=== PATIENT | female | born 1965 | race Caucasian/White ===

== ENCOUNTER 2016-09-21 11:20 | Day surgery (SDC) | payer OTHER ==
[2016-09-21] MEDS ORDERED: NS 1,000 ML ONE (11:35)
[2016-09-21] MEDS ORDERED: AMPICILLIN 2 GM/NS 100 ML IV ONE (12:00)
[2016-09-21] MEDS ORDERED: MYLICON DROPS (DOSE) MISC ONE (13:29)
[2016-09-21] MEDS ORDERED: XYLOCAINE-MPF 2% ONE (14:01)
[2016-09-21 14:40] VITALS: BP 106/49
[2016-09-21] MEDS ORDERED: DIPRIVAN 1% ONE (15:41)
--- NOTE | 2016-09-22 03:44 | OPERATIVE NOTE ---
PROCEDURE DATE: 09/21/2016 REFERRING PHYSICIAN: Dionisio Burroughs MD. INDICATION FOR PROCEDURE: 1. Known portal hypertension with esophageal varices. 2. 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 3. Planned esophageal banding. PROCEDURE PERFORMED: Esophagogastroduodenoscopy. CONSENT: Informed consent was obtained from the patient prior to the procedure. The risks, benefits, and alternatives were discussed. MEDICATION: The patient received: 1. Monitored anesthesia care. 2. Ampicillin 2 g IV prior to the procedure. PERFORMING PHYSICIAN: Dianna Rodriguez MD. ASSISTANTS: 1. [facility] 2. Gladys Bray RN. 3. Kendal Garcia RN. 4. Clari Vargas CRNA. 5. Pawel Wise MD (anesthesia). 6. Frantz Russo MD. COMPLICATIONS: There were no complications. ESTIMATED BLOOD LOSS: None. SPECIMENS REMOVED: None. FINDINGS: After sedation was achieved, the upper endoscope was inserted to the 2nd portion of the duodenum. The hypopharynx appeared endoscopically normal. In the tubular esophagus, there were small esophageal varices. This represents an interval improvement from her initial endoscopy where she had large esophageal varices. Given the reduction in size of the esophageal varices, no banding was performed. The GE junction appeared endoscopically normal at 40 cm. In the gastric lumen, there were scattered erosions consistent with erosive gastritis. It was mild in severity. The pylorus appeared endoscopically normal. The duodenum appeared endoscopically normal. On retroflexed view, the gastritis was visualized but there were no other findings. Notably, there were no gastric varices present. After the exam was complete, the lumen was decompressed and the scope was removed without incident. IMPRESSION: 1. Small esophageal varices. 2. Erosive gastritis. 3. Otherwise normal endoscopy. RECOMMENDATION: 1. Continue nadolol. 2. Continue Xifaxan. 3. Continue Prilosec. 4. Continue Reglan. We will need to reassess Reglan every 12 weeks to minimize the risk of an adverse event. The patient is aware of the risk of extrapyramidal signs as a potential complication. 5. We will have the patient return to clinic in 4 weeks to assess interval progress.
== END 2016-09-21 14:25 | disposition home or self-care (01) ==
LOC: OPS 11:20
PROVIDERS: ATTEND Internal Medicine Gastroenterology
DX: I85.00 Esophageal varices without bleeding (principal); K29.00 Acute gastritis without bleeding; K76.6 Portal hypertension; K74.60 Unspecified cirrhosis of liver; K76.0 Fatty (change of) liver, not elsewhere classified; E11.9 Type 2 diabetes mellitus without complications; M79.7 Fibromyalgia; Z86.73 Personal history of transient ischemic attack (TIA), and cerebral infarction without residual deficits; Z79.4 Long term (current) use of insulin; Z87.891 Personal history of nicotine dependence
CPT/HCPCS: 82948; J0290; J7030

== ENCOUNTER 2016-11-25 15:12 | Emergency (ER) | payer OTHER ==
--- NOTE | 2016-11-25 15:40 | PROVIDER DOCUMENTATION ---
HPI-Abdominal Pain/GI Problem - General Chief Complaint: Abdominal Pain Stated Complaint: ADB/KNEE PAIN Time Seen by Provider: 11/25/16 15:21 Allergies/Adverse Reactions: Patient Allergies Allergy/AdvReac Type Severity Reaction Status Date / Time adhesive tape Allergy Intermediate RASH Verified 11/25/16 16:11 loperamide HCl * Allergy Intermediate ITCHING Verified 11/25/16 16:11 [From Imodium A-D] morphine Allergy Intermediate ITCHING Verified 11/25/16 16:11 acetaminophen AdvReac Unknown Verified 11/25/16 16:11 Home Medications: Home Medication List Medication Instructions Recorded Confirmed Last Taken Type Citalopram [Celexa] 20 mg PO DAILY 04/09/16 11/25/16 11/25/16 History Cyclobenzaprine [Flexeril] 40 mg PO QHS 04/09/16 11/25/16 11/25/16 History Docusate Sodium [Colace] 300 mg PO DAILY 04/09/16 11/25/16 11/25/16 History Insulin Glargine [Lantus] 100 unit SUBQ QPM 04/09/16 11/25/16 11/25/16 History Insulin Lispro [Humalog] 16 unit SQ DIRECTED 04/09/16 11/25/16 11/25/16 History Levothyroxine [Synthroid] 100 microgm PO DAILY 04/09/16 11/25/16 11/25/16 History Lubiprostone [Amitiza] 24 mcg PO DAILY 04/09/16 11/25/16 11/25/16 History Multivitamin [Multi-Vitamin Daily] 1 each PO DAILY 04/09/16 11/25/16 11/25/16 History Rifaximin [Xifaxan] 550 mg PO BID 04/09/16 11/25/16 11/25/16 History Alprazolam [Xanax] 0.5 mg PO BID PRN 08/16/16 11/25/16 11/25/16 History Nadolol 40 mg PO BID 08/16/16 11/25/16 11/25/16 History Furosemide [Lasix] 80 mg PO DAILY 08/18/16 11/25/16 11/25/16 History Hyoscyamine Sulfate 0.125 mg PO 4XDAY 08/18/16 11/25/16 11/25/16 History Metoclopramide HCl [Reglan] 5 mg PO TID 08/18/16 11/25/16 11/25/16 History Spironolactone [Aldactone] 100 mg PO BID 08/18/16 11/25/16 11/25/16 History Dicyclomine [Bentyl] 10 mg PO AC + HS #20 capsule 11/25/16 Unknown Rx Ondansetron Odt [Zofran 4 mg Odt] 4 mg PO Q6H PRN PRN #15 tablet 11/25/16 Unknown Rx - History of Present Illness-ABD Nature of Presenting Problems: Pt presents with one month h/o abdominal pain and one year h/o right knee pain. Had cholecystectomy 4 months ago that cured chronic abdominal pain from fatty liver disease for about 3 months. Currently pain is generalized with increased pain in RUQ and epigastric region that does not cause n/v/d nor fever. Had one episode of loose stool today but this did not decrease her pain. Right knee pain for about one year since fall resulting in patellar fx that did not require surgical fixation. Has had chronically swollen right knee and lower leg since that fall/fracture. Abdominal Pain Onset Location: reports: RUQ, epigastric, generalized abdomen Quality of Pain: reports: aching Severity in ED: reports: mild Onset/Duration: reports: gradual Timing: reports: constant Activities at Onset: reports: none Exposure to sick contacts?: No Modifying Factors: improves with: nothing Associated Symptoms: denies: back/neck pain, chest pain, constipation, diarrhea , fever/chills, heartburn, loss of appetite, muscle aches, nausea, pain with inspiration, vomiting, weakness Last BM: this morning Dark Stools Present?: reports: none noticed Rectal Bleeding: reports: none # of Diarrhea Episodes: 0 # of Vomiting Episodes: 0 Emesis Description: reports: none Bruising or Bleeding Gums?: No Similar Symptoms Previously?: Yes Recently seen or treated by another doctor?: Yes (frequently seen in ER for same complaints) Review of Systems - Adult - REVIEW OF SYSTEMS - ADULT Constitutional: denies: chills, fever Eyes: denies: blurred vision, double vision Ears, Nose, Mouth & Throat: reports: no symptoms reported Cardiovascular: denies: chest pain Respiratory: denies: cough, shortness of breath Gastrointestinal: reports: abdominal pain, nausea Genitourinary: reports: no symptoms reported Musculoskeletal: reports: muscle aches Integumentary: denies: rash Neurological: denies: numbness, paresthesia All Other Systems: Reviewed and Negative Past History - Adult - PAST MEDICAL HISTORY-ADULT Review of Records: reports: Old Records Reviewed, Nursing Assessment Review, Medications Reviewed Major Childhood Illnesses: reports: denies history Cardiovascular: reports: hyperlipidemia Respiratory: reports: denies history Gastrointestinal: reports: hepatitis (cirrhosis, esophageal varices), liver disease Obstetrical/Gynecological: reports: denies history Genitourinary: reports: denies history Musculoskeletal: reports: denies history Neurological: reports: denies history Endocrine/Immune: reports: Diabetes Other Conditions: reports: denies history - PRIOR SURGERIES/PROCEDURES Surgical/Procedure History: reports: recent surgery, cholecystectomy - IMMUNIZATION STATUS Childhood Immunizations: See Nurse Assessment Flu Vaccine: See Nurse Assessment - FAMILY HISTORY Family History: reviewed, not pertinent - SOCIAL HISTORY Smoking: quit greater than 1 year Living Situation: family Physical Exam-General - PHYSICAL EXAM-ADULT Initial Vital Signs Reviewed: Yes - CONSTITUTIONAL General Appearance: appears well, alert, no apparent distress (pt observed walking, sitting, performing bed mobility with no pain or compensation) - EYES Eyes: PERRL/EOMI, pink conjunctivae. negative: scleral icterus - HEAD, EARS, NOSE, MOUTH & THROAT HENMT: normocephalic/atraumatic, moist mucous membranes, normal ENT inspection - NECK Neck: non-tender, full range of motion, supple - RESPIRATORY Respiratory: chest non-tender, lungs clear, normal breath sounds - CARDIOVASCULAR Cardiovascular: regular rate, rhythm. negative: no edema (bilateral 2+ pedal edema) - GASTROINTESTINAL (ABDOMEN) Abdominal Exam: normal bowel sounds, soft, tenderness (RUQ, epigastric, LUQ) - MUSCULOSKELETAL Back Exam: normal inspection, no CVA tenderness, no vertebral tenderness Extremity: pedal edema (2+), swelling (RLE with increased girth than left) - SKIN Integumentary: normal color, normal turgor, warm/dry - NEUROLOGIC Neurologic: grossly normal, no motor/sensory deficits - PSYCHIATRIC Psych/Mental Status: normal thought content, normal thought process Progress - PLAN OF CARE/RESULTS Progress/Plan/Lab Results: Vital Signs Temp Pulse Resp BP Pulse Ox 11/25/16 15:15 98.0 F 82 18 114/33 100 adhesive tape Allergy (Intermediate, Verified 11/25/16 16:11) RASH bandaids loperamide HCl * [From Imodium A-D] Allergy (Intermediate, Verified 11/25/16 16: 11) ITCHING morphine Allergy (Intermediate, Verified 11/25/16 16:11) ITCHING acetaminophen Adverse Reaction (Verified 11/25/16 16:11) Unknown CONTRAINDICATED WITH CIRRHOSIS Citalopram [Celexa] 20 mg PO DAILY 04/09/16 Cyclobenzaprine [Flexeril] 40 mg PO QHS 04/09/16 Docusate Sodium [Colace] 300 mg PO DAILY 04/09/16 Insulin Glargine [Lantus] 100 unit SUBQ QPM 04/09/16 Insulin Lispro [Humalog] 16 unit SQ DIRECTED 04/09/16 Levothyroxine [Synthroid] 100 microgm PO DAILY 04/09/16 Lubiprostone [Amitiza] 24 mcg PO DAILY 04/09/16 Multivitamin [Multi-Vitamin Daily] 1 each PO DAILY 04/09/16 Rifaximin [Xifaxan] 550 mg PO BID 04/09/16 Alprazolam [Xanax] 0.5 mg PO BID PRN 08/16/16 Nadolol 40 mg PO BID 08/16/16 Furosemide [Lasix] 80 mg PO DAILY 08/18/16 Hyoscyamine Sulfate 0.125 mg PO 4XDAY 08/18/16 Metoclopramide HCl [Reglan] 5 mg PO TID 08/18/16 Spironolactone [Aldactone] 100 mg PO BID 08/18/16 I&O 11/24/16 11/25/16 11/26/16 06:59 06:59 06:59 Output Total 60 Balance -60 Laboratory 11/25/16 11/25/16 11/25/16 16:38 15:36 15:36 WBC RBC Hgb Hct MCV MCH MCHC RDW Std Deviation Plt Count MPV Immature Gran % (Auto) Neut % (Auto) Lymph % (Auto) [place] % (Auto) Eos % (Auto) Baso % (Auto) Immature Gran # (Auto) Neut # (Auto) Lymph # (Auto) [place] # (Auto) Eos # (Auto) Baso # (Auto) D-Dimer 1.59 H Sodium 133 L Potassium 3.9 Chloride 95 L Carbon Dioxide 25 Anion Gap 13 BUN 7 L Creatinine 0.5 Estimated GFR/1.73 m2 > 60 BUN/Creatinine Ratio 14 Glucose 222 H Calculated Osmolality 271 Calcium 9.0 Total Bilirubin 2.21 H AST 41 H ALT 26 Alkaline Phosphatase 368 H Total Protein 6.0 L Albumin 2.9 L Globulin 3.1 Albumin/Globulin Ratio 0.9 Lipase 81 H Urine Source CLEAN CATCH Urine Color YELLOW Urine Turbidity CLEAR Urine pH 7.5 Ur Specific [place] 1.010 Urine Protein NEGATIVE Ur Glucose (Stick) NEGATIVE Ur Ketones (Stick) NEGATIVE Urine Blood NEGATIVE Urine Nitrite NEGATIVE Urine Bilirubin NEGATIVE Urobilinogen Dipstick 6 A Urine Leukocytes NEGATIVE Urine WBC (Auto) <10 Urine RBC (Auto) <10 U Epithel Cells (Auto) <10 Urine Bacteria (Auto) 1+ 11/25/16 15:36 WBC 5.98 RBC 4.56 Hgb 13.3 Hct 38.1 MCV 83.6 MCH 29.2 MCHC 34.9 RDW Std Deviation 14.4 Plt Count 189 MPV 10.7 H Immature Gran % (Auto) 0.0 Neut % (Auto) 68.2 Lymph % (Auto) 19.6 L [place] % (Auto) 8.2 Eos % (Auto) 3.7 Baso % (Auto) 0.3 Immature Gran # (Auto) 0.00 Neut # (Auto) 4.08 Lymph # (Auto) 1.17 L [place] # (Auto) 0.49 Eos # (Auto) 0.22 Baso # (Auto) 0.02 D-Dimer Sodium Potassium Chloride Carbon Dioxide Anion Gap BUN Creatinine Estimated GFR/1.73 m2 BUN/Creatinine Ratio Glucose Calculated Osmolality Calcium Total Bilirubin AST ALT Alkaline Phosphatase Total Protein Albumin Globulin Albumin/Globulin Ratio Lipase Urine Source Urine Color Urine Turbidity Urine pH Ur Specific [place] Urine Protein Ur Glucose (Stick) Ur Ketones (Stick) Urine Blood Urine Nitrite Urine Bilirubin Urobilinogen Dipstick Urine Leukocytes Urine WBC (Auto) Urine RBC (Auto) U Epithel Cells (Auto) Urine Bacteria (Auto) Orders Category Date Time Status Finger Stick Blood Sugar (ED) DIRECTED Care 11/25/16 15:32 Active Saline Loc NOW Care 11/25/16 15:34 Active ABD/PELVIS/PULM ARTERIES [CT] Stat Exams 11/25/16 16:48 Draft FLAT/UPRIGHT ABD/1 VIEW CHEST [RAD] Stat Exams 11/25/16 15:34 Taken KNEE 3 VIEWS RIGHT [RAD] Stat Exams 11/25/16 15:34 Taken CBC WITH ELECTRONIC DIFF [HEME] Stat Lab 11/25/16 15:36 Completed COMPREHENSIVE METABOLIC PANEL [CHEM] Stat Lab 11/25/16 15:36 Completed D-DIMER [CHEM] Stat Lab 11/25/16 15:36 Completed LIPASE [CHEM] Stat Lab 11/25/16 15:36 Completed URINALYSIS W/POSS RFLX CULT [URINALYSIS] Stat Lab 11/25/16 16:38 Completed 0.9% Sodium Chloride Inj [Ns] 1,000 ml Med 11/25/16 16:53 Discontinued IV 999 mls/hr Hydromorphone [Dilaudid] Med 11/25/16 16:53 Discontinued 1 mg IV NOW ONE Promethazine [Phenergan] Med 11/25/16 16:53 Discontinued 25 mg IV NOW ONE Sodium Chloride 0.9% Med 11/25/16 16:53 Discontinued 10 ml INJ NOW ONE Venous U/S Right Leg [CV] Stat Ther 11/25/16 16:33 Completed Laboratory Tests 11/25/16 11/25/16 11/25/16 15:36 15:36 15:36 WBC 5.98 RBC 4.56 Hgb 13.3 Hct 38.1 MCV 83.6 MCH 29.2 MCHC 34.9 RDW Std Deviation 14.4 Plt Count 189 MPV 10.7 H Immature Gran % (Auto) 0.0 Neut % (Auto) 68.2 Lymph % (Auto) 19.6 L [place] % (Auto) 8.2 Eos % (Auto) 3.7 Baso % (Auto) 0.3 Immature Gran # (Auto) 0.00 Neut # (Auto) 4.08 Lymph # (Auto) 1.17 L [place] # (Auto) 0.49 Eos # (Auto) 0.22 Baso # (Auto) 0.02 D-Dimer 1.59 H Sodium 133 L Potassium 3.9 Chloride 95 L Carbon Dioxide 25 Anion Gap 13 BUN 7 L Creatinine 0.5 Estimated GFR/1.73 m2 > 60 BUN/Creatinine Ratio 14 Glucose 222 H Calculated Osmolality 271 Calcium 9.0 Total Bilirubin 2.21 H AST 41 H ALT 26 Alkaline Phosphatase 368 H Total Protein 6.0 L Albumin 2.9 L Globulin 3.1 Albumin/Globulin Ratio 0.9 Lipase 81 H Urine Source Urine Color Urine Turbidity Urine pH Ur Specific [place] Urine Protein Ur Glucose (Stick) Ur Ketones (Stick) Urine Blood Urine Nitrite Urine Bilirubin Urobilinogen Dipstick Urine Leukocytes Urine WBC (Auto) Urine RBC (Auto) U Epithel Cells (Auto) Urine Bacteria (Auto) 11/25/16 16:38 WBC RBC Hgb Hct MCV MCH MCHC RDW Std Deviation Plt Count MPV Immature Gran % (Auto) Neut % (Auto) Lymph % (Auto) [place] % (Auto) Eos % (Auto) Baso % (Auto) Immature Gran # (Auto) Neut # (Auto) Lymph # (Auto) [place] # (Auto) Eos # (Auto) Baso # (Auto) D-Dimer Sodium Potassium Chloride Carbon Dioxide Anion Gap BUN Creatinine Estimated GFR/1.73 m2 BUN/Creatinine Ratio Glucose Calculated Osmolality Calcium Total Bilirubin AST ALT Alkaline Phosphatase Total Protein Albumin Globulin Albumin/Globulin Ratio Lipase Urine Source CLEAN CATCH Urine Color YELLOW Urine Turbidity CLEAR Urine pH 7.5 Ur Specific [place] 1.010 Urine Protein NEGATIVE Ur Glucose (Stick) NEGATIVE Ur Ketones (Stick) NEGATIVE Urine Blood NEGATIVE Urine Nitrite NEGATIVE Urine Bilirubin NEGATIVE Urobilinogen Dipstick 6 A Urine Leukocytes NEGATIVE Urine WBC (Auto) <10 Urine RBC (Auto) <10 U Epithel Cells (Auto) <10 Urine Bacteria (Auto) 1+ Discussed need to follow up with PCP and ortho. Pt voiced understanding and willingness for compliance. Reviewed prior labs and noted trend of elevated bilirubin, liver enzymes, lipase , and alk phos. - REASSESSMENT Reassessment #1 Time Reassessed: 16:40 (request pain medications. Discussed elevated d-dimer and swollen RLE and need for US of RLE and CT of abd and pulmonary arteries. Pt voiced understanding) Status: unchanged - XRAY 1 XRAY: Right XRAY Study: Knee Impression: Normal XRAY Interpretation: arthritis, no acute injury 2 XRAY Study: Chest, Abdomen Impression: Abnormal XRAY Interpretation: constipation - CT/MRI 1 CT Study: Abdomen, Angiogram, Pelvis Impression: Abnormal (constipation) CT Results: improved ascites, constipation, s/p portosystemic shunt - ULTRASOUND (By Radiology) 1 US Study: Lower Ext (RLE) Impression: Normal US Results: (-) DVT Departure - Departure Time of Disposition Order: 18:03 DIAGNOSIS: Fatty (change of) liver, not elsewhere classified Abdominal pain Qualifiers: Abdominal location: right upper quadrant Qualified Code(s): R10.11 - Right upper quadrant pain Knee pain, chronic Qualifiers: Laterality: right Qualified Code(s): M25.561 - Pain in right knee; G89.29 - Other chronic pain Disposition: HOME 01 Certified Medical Emergency: Emergent Condition: Good Additional Instructions: ED Follow Up Instructions: You have been treated by a care provider in the Emergency Department. These instructions are being provided to you so you can have an understanding of how to care for yourself upon discharge. Upon discharge from the Emergency Department, you are responsible for making arrangements for follow-up care by a physician of your choice. Take all prescribed medications as directed. Return to the Emergency Department immediately for any new or worsening symptoms. You may call the Physician Referral phone number at [phone] to obtain a list of Physicians who are taking new patients. Prescriptions: Dicyclomine [Bentyl] 10 mg PO AC + HS #20 capsule Ondansetron Odt [Zofran 4 mg Odt] 4 mg PO Q6H PRN PRN #15 tablet PRN Reason: Nausea Referrals: Anca Foreman [Primary Care Provider] - Sheree Ozuna MD [STAFF PHYSICIAN] - Attestation - Physician/ JEFFREY Attestation Patient care was provided by Advanced Practice Provider:: Yes Advanced Practice Provider:: Melba Hassan Advanced Practice Provider documentation review:: The Mid-level provider documentation, treatment plan and medical decision making was reviewed by the physician who agrees with all treatment and medical decision making by the MLP.
[2016-11-25 15:48] LABS: MANUAL DIFF NEEDED? NO
[2016-11-25 15:52] LABS: BASO% 0.3 % (0.0-0.8); EOS# 0.22 X1000 (0.0-0.7); EOS% 3.7 % (0.0-10.0); HEMATOCRIT 38.1 % (37.0-47.0); HEMOGLOBIN 13.3 g/dL (12.0-16.0); LYMPH# 1.17 X1000 (1.2-3.4); LYMPH% 19.6 % (20.5-51.1); MCH 29.2 PG (27-31); MCHC 34.9 g/dL (33-37); MCV 83.6 FL (81-99); MONO# 0.49 X1000 (0.11-0.59); MONO% 8.2 % (1.7-9.3); MPV 10.7 FL (7.4-10.4); NEUT% 68.2 % (42.2-75.2); PLT 189 X1000 (130-400); RBC 4.56 XMIL (4.2-5.4)
[2016-11-25 16:10] LABS: AGAP 13; ALBUMIN 2.9 g/dL (3.5-5.0); ALKALINE PHOSPHATASE 368 U/L (32-104); BUN 7 mg/dL (8-22); CHLORIDE 95 mmol/L (98-107); COSMO 271; GOT 41 U/L (10-30); GPT 26 U/L (10-36); LIPASE 81 U/L (13-60); POTASSIUM 3.9 mmol/L (3.5-5.1); SODIUM 133 mmol/L (136-145); TCO2 25 mmol/L (25-35); TOTAL BILIRUBIN 2.21 mg/dL (0.20-1.00)
[2016-11-25] MEDS ORDERED: PHENERGAN IV ONE (16:53)
[2016-11-25] MEDS ORDERED: NS 1,000 ML IV ONE (16:53)
[2016-11-25] MEDS ORDERED: DILAUDID IV ONE (16:53)
[2016-11-25] MEDS ORDERED: SODIUM CHLORIDE 0.9% INJ ONE (16:53)
[2016-11-25 17:16] LABS: URINE CULTURE NEEDED? NO; URINE MICRO REVIEW NEEDED? NO; URINE SOURCE CLEAN CATCH
[2016-11-25 17:22] LABS: BILIRUBIN URINE NEGATIVE (NEGATIVE); BLOOD URINE NEGATIVE (NEGATIVE); COLOR YELLOW; GLUCOSE URINE NEGATIVE (NEGATIVE); LEUKOCYTES URINE NEGATIVE (NEGATIVE); NITRITE URINE NEGATIVE (NEGATIVE); PH URINE 7.5; PROTEIN URINE NEGATIVE (NEGATIVE); TURBIDITY URINE CLEAR (CLEAR); UROBILINOGEN URINE 6 mg/dL (NORMAL)
[2016-11-25 17:23] LABS: UR EPITHELIAL CELLS <10 /HPF (<10); URINE BACTERIA 1+ /HPF; URINE RBC <10 /HPF (<10); URINE WBC <10 /HPF (<10)
--- NOTE | 2016-11-25 17:51 | Diag Imaging Result Document ---
PROCEDURE NAME: ABD/PELVIS/PULM ARTERIES - 11/25/2016 CT OF THE CHEST WITH INTRAVENOUS CONTRAST: FINDINGS: There are no filling defects in the pulmonary arteries. The aorta is not distended and there is no evidence of dissection. There is no evidence of significant adenopathy. There is no evidence of acute pulmonary parenchymal disease. IMPRESSION: No evidence of acute disease in the chest. CT OF THE ABDOMEN WITH INTRAVENOUS CONTRAST: FINDINGS: There is ascites. There is a stent in the liver (TIPS). This was not present on 04/14/2016. The degree of ascites has decreased slightly in volume since the previous study. The spleen exceeds 14.4 cm in AP dimension which is slightly smaller than it was at the time of the previous study. There are still extensive varices around the stomach. The portal vein appears to be patent. There is fluid in the small bowel and stool in the colon. There is no evidence of obstruction. There is no evidence of appendicitis. The kidneys are without evidence of hydronephrosis or mass. CT OF THE PELVIS WITH INTRAVENOUS CONTRAST: FINDINGS: There is solid stool in the rectosigmoid colon. The urinary bladder is not distended. The regional skeleton is intact. IMPRESSION: 1. Improved ascites. 2. Status post portosystemic shunt. 3. Constipation.
[2016-11-25 19:06] VITALS: BP 101/52
--- NOTE | 2016-11-26 07:29 | Diag Imaging Result Document ---
PROCEDURE NAME: KNEE 3 VIEWS RIGHT - 11/25/2016 RIGHT KNEE THREE VIEWS: FINDINGS: There is patella bone spurring. No fracture. No dislocation. Mild medial joint space narrowing. Erosions along the posterior patella. IMPRESSION: Mild arthritis.
--- NOTE | 2016-11-26 07:38 | Diag Imaging Result Document ---
PROCEDURE NAME: FLAT/UPRIGHT ABD/1 VIEW CHEST - 11/25/2016 FLAT AND UPRIGHT AND CHEST, FOUR VIEWS: COMPARISON: Chest compared to 11/08/2016. FINDINGS: The lungs are well expanded. No pneumonia. No cardiomegaly. No free air beneath the diaphragm. There are surgical clips and a large stent in the right upper quadrant. Stool is found throughout the colon. The bowel loops are not dilated. No organomegaly. No abnormal abdominal calcifications. IMPRESSION: Constipation.
--- NOTE | 2016-11-26 15:50 | Extremity Venous Study ---
PROCEDURE NAME: Venous U/S Right Leg - 11/25/2016 REFERRING PHYSICIAN: Dr. Jernigan. READING PHYSICIAN: Dr. David Rodríguez. DRUG INSPECTOR: Harpreet. INDICATION: Elevated D-dimer and leg pain. FINDINGS: The deep and superficial veins of the right lower extremity were imaged throughout their course. All are compressible with forward flow. No thrombus is appreciated. INTERPRETATION: No evidence of deep or superficial venous thrombosis of the right lower extremity.
== END 2016-11-25 19:21 | disposition home or self-care (01) ==
LOC: ED 15:12
DX: R10.11 Right upper quadrant pain (principal); K76.0 Fatty (change of) liver, not elsewhere classified; M25.561 Pain in right knee; G89.29 Other chronic pain; R10.13 Epigastric pain; R10.84 Generalized abdominal pain; M79.1 Myalgia; E78.5 Hyperlipidemia, unspecified; K74.60 Unspecified cirrhosis of liver; I85.10 Secondary esophageal varices without bleeding; Z87.891 Personal history of nicotine dependence; E11.9 Type 2 diabetes mellitus without complications; R60.9 Edema, unspecified; R22.41 Localized swelling, mass and lump, right lower limb; Z79.899 Other long term (current) drug therapy; Z79.4 Long term (current) use of insulin
CPT/HCPCS: 71275; 74022; 74177; 80053; 81001; 82948; 83690; 85025; 85379; 93971; 96361; 96374; J1170; J2550; J7030; Q9967

== ENCOUNTER 2018-12-15 21:05 | Inpatient (IN) ==
[2018-12-15] MEDS ORDERED: D50W SYRINGE ONE (21:15)
[2018-12-15] MEDS ORDERED: D50W SYRINGE IV ONE (21:25)
[2018-12-15] MEDS ORDERED: NS 1,000 ML IV ONE (21:25)
[2018-12-15] MEDS ORDERED: NS 0 ML ONE (21:30)
[2018-12-15 23:17] LABS: AGAP 10; ALBUMIN 2.1 g/dL (3.5-5.0); ALKALINE PHOSPHATASE 215 U/L (32-104); BUN 11 mg/dL (8-22); CALCIUM 7.1 mg/dL (8.8-10.2); CHLORIDE 107 mmol/L (98-107); CK PROFILE 99 U/L (24-173); COSMO 277; CREATININE 0.3 mg/dL (0.5-0.9); ESTIMATED GFR > 60; GLUCOSE 126 mg/dL (70-104); GOT 51 U/L (10-30); GPT 21 U/L (10-36); POTASSIUM 4.4 mmol/L (3.5-5.1); SODIUM 138 mmol/L (136-145); TCO2 21 mmol/L (25-35); TOTAL BILIRUBIN 2.86 mg/dL (0.20-1.00); TOTAL PROTEIN 4.2 g/dL (6.3-8.3)
[2018-12-15 23:22] LABS: BASO# 0.02 X1000 (0.0-0.2); BASO% 0.2 % (0.0-0.8); EOS# 0.27 X1000 (0.0-0.7); EOS% 2.8 % (0.0-10.0); HEMATOCRIT 32.9 % (37.0-47.0); HEMOGLOBIN 11.1 g/dL (12.0-16.0); LYMPH# 1.06 X1000 (1.2-3.4); LYMPH% 10.9 % (20.5-51.1); MCH 29.3 PG (27-31); MCHC 33.7 g/dL (33-37); MCV 86.8 FL (81-99); MONO# 0.38 X1000 (0.11-0.59); MONO% 3.9 % (1.7-9.3); MPV 10.4 FL (7.4-10.4); NEUT# 7.98 X1000 (1.4-6.5); NEUT% 82.2 % (42.2-75.2); PLT 137 X1000 (130-400); RBC 3.79 XMIL (4.2-5.4); RDW 17.6 % (11.5-14.5); WBC 9.71 X1000 (4.8-10.8)
[2018-12-15 23:58] LABS: URINE SOURCE CLEAN CATCH
[2018-12-16 00:02] LABS: BILIRUBIN URINE SMALL (NEGATIVE); BLOOD URINE NEGATIVE (NEGATIVE); COLOR YELLOW; GLUCOSE URINE TRACE mg/dL (NEGATIVE); KETONE URINE NEGATIVE (NEGATIVE); LEUKOCYTES URINE LARGE (NEGATIVE); NITRITE URINE NEGATIVE (NEGATIVE); PROTEIN URINE TRACE mg/dL (NEGATIVE); SP GRAVITY URINE 1.029; TURBIDITY URINE CLEAR (CLEAR); UR EPITHELIAL CELLS <10 /HPF (<10); URINE BACTERIA NEGATIVE /HPF; URINE WBC 20-40 /HPF (<10); UROBILINOGEN URINE >12 mg/dL (NORMAL)
[2018-12-16 00:18] LABS: URINE CASTS NONE SEEN; URINE CRYSTALS NONE SEEN; URINE SMALL ROUND CELLS NONE SEEN; URINE YEAST PRESENT
[2018-12-16] MEDS ORDERED: LEVAQUIN 500 MG in NS 100 ML IV SCH (01:00)
[2018-12-16] MEDS ORDERED: LEVAQUIN 500 MG/D5W 500 MG/100 ML IVPB ONE (01:01)
[2018-12-16 01:22] LABS: ALLEN TEST YES; BE -0.9 mmoll (-3.0-3.0); BLOOD TYPE ARTERIAL; HCO3-(ACT) 24.2 mmoll (20.0-26.0); METHB 1.4 % (0.0-1.5); O2(CT) 15.8 mL/dL (15.0-23.0); O2HB 94.3 % (95.0-99.0); PCO2(98.6) 37 mmHg (35-45); PO2(98.6) 101 mmHg (60-100); SAMPLE BLOOD; THB 11.8 g/dL (11.5-17.4); pH(98.6) 7.41 (7.35-7.45)
[2018-12-16 01:23] LABS: MODALITY CANNULA
[2018-12-16] MEDS ORDERED: D50W SYRINGE IV PRN (04:04)
[2018-12-16] MEDS: HUMALOG SUBQ SCH ×5 (04:15→20:09)
[2018-12-16 04:24] LABS: HEMOGLOBIN A1C 5.1 % (4.8-6.0)
[2018-12-16] MEDS: ROCEPHIN 1 GM in NS 50 ML IV SCH (04:31)
[2018-12-16] MEDS ORDERED: ZOFRAN IV PRN (04:45)
[2018-12-16] MEDS: NEO-SYNEPHRINE 50 MG in NS 250 ML IV SCH ×2 (05:50→23:02)
[2018-12-16] MEDS: SYNTHROID PO SCH (07:00)
--- NOTE | 2018-12-16 07:29 | Diag Imaging Result Doc PS360 ---
EXAM: CHEST-PORTABLE - 12/15/2018 HISTORY: altered mental status TECHNIQUE: Portable chest COMPARISON: 07/31/2018 FINDINGS: The patient is rotated towards the right, which limits detail some areas. Inspiration is mildly shallow. There is some prominence of infrahilar markings on the left but these may be exaggerated by patient rotation. The right lung appears grossly clear. There is a possible tiny left pleural effusion. There is no pneumothorax identified. IMPRESSION: Mildly shallow inspiration. Questionable infrahilar infiltrate on the left versus artifact of patient rotation. Electronically signed by Parveen Perez 12/16/2018 7:27 AM
--- NOTE | 2018-12-16 07:44 | Diag Imaging Result Doc PS360 ---
EXAM: CT HEAD W/O CONTRAST - 12/15/2018 HISTORY: lethargic TECHNIQUE: CT head without contrast COMPARISON: None. FINDINGS: There is some enlargement of the body of the left lateral ventricle relative to the right. While some of this could relate to congenital anomaly, this is somewhat suspicious for ex vacuo enlargement associated with old periventricular/caudate infarct. This also extends to the left basal ganglia region. There is no indication of recent infarct, although acute infarcts may not be immediately visible. There is no evidence of intracranial hemorrhage, mass effect, or midline shift. There is no evidence of skull fracture. 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 No visible acute intracranial abnormality. No hemorrhage or mass effect. The content publisher radiologist provided preliminary results at 11:42 PM on 12/15/2018. This exam was performed using automated exposure control, adjustment of mA or kV according to patient size, and/or use of iterative reconstruction technique. Electronically signed by Parveen Perez 12/16/2018 7:41 AM
--- NOTE | 2018-12-16 07:49 | Diag Imaging Result Doc PS360 ---
EXAM: CT ANGIOGRM PULMONARY ARTERIES - 12/15/2018 HISTORY: abnormal chest xray. recent surgery TECHNIQUE: CT angiogram pulmonary arteries with intravenous contrast. Axial, coronal, and 3-D MIP images are obtained. COMPARISON: 11/25/2016 FINDINGS: There are no filling defects identified in the pulmonary arteries. There is some limitation of detail at lower lobe pulmonary arteries due to artifacts from motion and into crowding from some atelectasis. There is no evidence of aortic dissection. There are tiny right and small left pleural effusions. There is some adjacent dependent/compressive atelectasis. There is no other consolidation identified. There is no pneumothorax seen. There is upper abdominal ascites. IMPRESSION: No evidence of pulmonary embolism. Tiny right and small left pleural effusions, with adjacent dependent/compressive atelectasis. No discrete pneumonia. Upper abdominal ascites. The front clerk radiologist provided preliminary results at 11:39 PM on 12/15/2018. Electronically signed by Parveen Perez 12/16/2018 7:47 AM
[2018-12-16] MEDS: FLEXERIL PO SCH ×4 (07:53→20:08)
[2018-12-16] MEDS: CELEXA PO SCH (08:28)
[2018-12-16] MEDS: XIFAXAN PO SCH ×2 (08:30→20:08)
[2018-12-16] MEDS: PRILOSEC PO SCH (08:30)
[2018-12-16] MEDS: NEURONTIN PO SCH ×3 (08:30→20:09)
[2018-12-16] MEDS ORDERED: CORGARD PO SCH (09:00)
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
[2018-12-16] MEDS ORDERED: DILAUDID PO PRN (10:20)
[2018-12-16] MEDS ORDERED: NS 500 ML IV ONE (14:29)
[2018-12-16] MEDS ORDERED: DILAUDID IV ONE (14:29)
--- NOTE | 2018-12-16 15:45 | PROGRESS NOTE ---
DATE: 12/16/2018 SUBJECTIVE: The patient has no major complaints. OBJECTIVE: Vital Signs: Blood pressure is 77/35, heart rate 78, respiratory rate 20, and temperature 98.5. Cardiovascular: Regular rate and rhythm. Pulmonary: Bilateral breath sounds clear to auscultation. GI: Soft, protuberant, and distended. Bowel sounds are positive. Extremities: No clubbing or cyanosis. LABORATORY DATA: White count is 9, hemoglobin and hematocrit 11 and 32, and platelets 137. Workup is negative. PROBLEM LIST: 1. Shock, persistent hypotension. Unclear etiology, possibly sepsis, possibly cirrhosis. We will continue Ricardo-Synephrine and work on weaning it off. 2. Hypoglycemia, also concerning for possible underlying sepsis but could be related to her cirrhosis. We will continue to follow. Her blood sugars have stabilized off of any treatment. We will continue to follow closely. 3. Disposition: We have got to get her off of her medications. I am trying to give her a bolus and check a cortisol level. 4. Urinary tract infection. We will continue antibiotics empirically and follow. It may also be related to dehydration. cc: Carlos Maki MD
[2018-12-16] MEDS: DILAUDID IV PRN (18:44)
[2018-12-17] MEDS: HUMALOG SUBQ SCH ×6 (00:02→20:23)
[2018-12-17] MEDS: DILAUDID IV PRN ×5 (04:38→20:22)
[2018-12-17] MEDS: ROCEPHIN 1 GM in NS 50 ML IV SCH (04:39)
[2018-12-17 06:16] LABS: BASO# 0.05 X1000 (0.0-0.2); BASO% 0.4 % (0.0-0.8); EOS# 0.93 X1000 (0.0-0.7); EOS% 8.1 % (0.0-10.0); HEMATOCRIT 29.5 % (37.0-47.0); HEMOGLOBIN 9.4 g/dL (12.0-16.0); IMM GRAN# 0.06 X1000 (0.0-0.04); IMM GRAN% 0.5 % (0.0-0.5); LYMPH# 2.03 X1000 (1.2-3.4); LYMPH% 17.6 % (20.5-51.1); MCH 28.6 PG (27-31); MCHC 31.9 g/dL (33-37); MCV 89.7 FL (81-99); MONO# 1.37 X1000 (0.11-0.59); MONO% 11.9 % (1.7-9.3); MPV 9.7 FL (7.4-10.4); NEUT# 7.11 X1000 (1.4-6.5); NEUT% 61.5 % (42.2-75.2); PLT 231 X1000 (130-400); RBC 3.29 XMIL (4.2-5.4); RDW 18.3 % (11.5-14.5); WBC 11.55 X1000 (4.8-10.8)
[2018-12-17 06:46] LABS: AGAP 8; BUN 14 mg/dL (8-22); CALCIUM 7.2 mg/dL (8.8-10.2); CHLORIDE 107 mmol/L (98-107); COSMO 277; CREATININE 0.5 mg/dL (0.5-0.9); ESTIMATED GFR > 60; GLUCOSE 116 mg/dL (70-104); MAGNESIUM 1.8 mg/dL (1.5-2.7); POTASSIUM 4.4 mmol/L (3.5-5.1); SODIUM 138 mmol/L (136-145); TCO2 23 mmol/L (25-35)
[2018-12-17] MEDS: SYNTHROID PO SCH (06:53)
[2018-12-17] MEDS: NEURONTIN PO SCH ×3 (08:07→21:52)
[2018-12-17] MEDS: XIFAXAN PO SCH ×2 (08:07→21:52)
[2018-12-17] MEDS: PRILOSEC PO SCH (08:07)
[2018-12-17] MEDS: CELEXA PO SCH (08:07)
[2018-12-17] MEDS: FLEXERIL PO SCH ×3 (08:07→21:53)
[2018-12-17] MEDS ORDERED: LASIX PO SCH (12:45)
[2018-12-17] MEDS ORDERED: ROCEPHIN 1 GM in NS 50 ML IV ONE (13:00)
[2018-12-17 13:20] LABS: AGAP 8; ALB/GLOB RATIO 0.8; ALKALINE PHOSPHATASE 193 U/L (32-104); BUN 12 mg/dL (8-22); CALCIUM 7.3 mg/dL (8.8-10.2); CHLORIDE 104 mmol/L (98-107); COSMO 272; CREATININE 0.5 mg/dL (0.5-0.9); ESTIMATED GFR > 60; GLUCOSE 141 mg/dL (70-104); GOT 42 U/L (10-30); GPT 19 U/L (10-36); POTASSIUM 4.4 mmol/L (3.5-5.1); SODIUM 135 mmol/L (136-145); TCO2 23 mmol/L (25-35); TOTAL BILIRUBIN 1.86 mg/dL (0.20-1.00); TOTAL PROTEIN 4.4 g/dL (6.3-8.3)
--- NOTE | 2018-12-17 13:31 | PROGRESS NOTE ---
DATE: 12/17/2018 SUBJECTIVE: Patient has no major complaints. Blood pressure is better. OBJECTIVE: Blood pressure 108/42, heart rate of 84, temperature was 98.4 degrees. Cardiovascular: Regular rate and rhythm. Extremities: No clubbing or cyanosis. Lymphatic Examination: No peripheral edema. Neurological: Examination was nonfocal. GI: Protuberant belly. Soft, nontender, nondistended. Bowel sounds were positive. I would say she has a positive fluid wave. Pulmonary: Bilateral breath sounds clear to auscultation. Extremity Examination: No clubbing or cyanosis. Laboratory Data: White count is 11, hemoglobin and hematocrit 9 and 29, platelets of 231,000. Basic was normal. ASSESSMENT AND PLAN: 1. Shock related to possible dehydration, cirrhosis, could be sepsis. No clear source, although ascites and peritonitis are a possibility. We are evaluating for spontaneous bacterial peritonitis currently. 2. Hypoglycemia. That is also resolved. Blood sugars are stable. 3. Anemia which has progressed after hydration. We will check her labs and follow. 4. Putative urinary tract infection. Urine culture is negative. Her urine is possible urinary tract infection but unclear at this point. I am more concerned about peritonitis. 5. Disposition. She is off pressors and stable so I think we will transition her to stepdown now. 6. Cirrhosis. It is unclear if this is related to primary cirrhosis. I think she does have now nonalcoholic steatohepatitis. She has had varices noted on esophagogastroduodenoscopy before. Dr. Rodriguez is her regular provider but she is unavailable at the moment so we will consult Dr. Rob and see how she does. cc: Carlos Maki MD
--- NOTE | 2018-12-17 16:16 | Diag Imaging Result Doc PS360 ---
EXAM: US ABDOMEN-COMPLETE HISTORY: cirrhosis/sepsis TECHNIQUE: Abdominal ultrasound COMPARISON: 07/31/2018 FINDINGS: Suboptimal exam due to the patient's condition. The pancreas is obscured. The gallbladder has been removed. There is a small amount of free fluid in the upper abdomen. The spleen measures 15.7 cm in length. There is fatty infiltration of the liver. It is very difficult to penetrate the liver. No left-sided hydronephrosis or focal abnormality to the left kidney. The right kidney, aorta, and inferior vena cava are all obscured. IMPRESSION: 1.Fatty infiltration of the liver 2.Splenomegaly 3.Small amount of ascites 4.Cholecystectomy Electronically signed by Calixto Solorio 12/17/2018 4:14 PM
--- NOTE | 2018-12-17 18:52 | GASTROENTEROLOGY CONSULTATION ---
DATE: 12/17/2018 Reason for consultation: cirrhosis HPI: Ms. Elen White is a 53 year old morbidly obese woman with IDDM2, hypothyroidism, decompensated PINEDA cirrhosis c/b ascites and nonbleeding esophageal varices who was admitted yesterday after being found in bed at home unresponsive and shock in the setting of hypoglycemia with BG 30s. Prior to onset of symptoms, patient reports being in her usual state of health. That morning, she admits to taking 50 units of humolog that morning instead of her usual 30 units because she knew she was going to have a meal higher in carbs. The last thing she remembers is awaking in the ER. Currently, she says she is back to normal. She takes rifaximin, but denies history of hepatic encephalopathy and has never required lactulose in the past. Of note, she recently underwent lumbar back surgery on 12/07 and has not been taking her diuretics given her decreased mobility postoperatively. She admits to 100 pound weight gain over the last year secondary to sedentary lifestyle. She had recent EGD in 09/2018 that was negative for varices. FHx notable for PINEDA cirrhosis in mother who recently underwent liver transplant. She is followed by Dr. Rodriguez as outpatient and was supposed to be referred to [facility] for liver transplant evaluation. ROS: as per HPI, otherwise 12-point ROS negative. PMH: decompensated PINEDA cirrhosis, ascites, hypothyroidism, IDDM2, hypothyroidism, morbid obesity, prior smoker, depression, anxiety PSH: CCY, x2, back surgery x4, elbow surgery, tonsillectomy MED: spironolactone 100mg daily, lasix 40mg daily (not taking since recent surgery), synthroid, nadolol, rifaximin, celexa, xanax, flexeril, diluadid, humolog, treciba ALL: morphine, imodium, bandaid adhesive FH: PINEDA cirrhosis in mother. No GI malignancies SH: former smoker. No E/D use. PE: VS T97.3 HR 91 BP 110/49 RR 17 97%RA GEN: awake, alert, NAD, pleasant HEENT: anicteric, MMM, EOMI NECK: supple, no jvd PULM: CTAB, no wheezing CV: RRR, no mrg ABD: obese, abdominal striae, NABS, NT, difficult to appreciate ascites given habitus EXT: 1-2+ LE edema NEURO: nonfocal, no asterixis LABS: Na 135 K 4.4 Cl 104 BUN 12 Cr 0.5 CO2 23 glu 141 Albumin 2.0 Tpro 4.4 Tbili 1.86 AST 42 ALT 19 ALP 193 WBC 11.5 hgb 9.4 plts 231 ammonia 36 TSH WNL lactate 1.2 UA large WBC, RBC UC no growth troponin negative CXR w question infrahilar infiltrate vs artifact CTPE negative Abdominal US showed fatty liver, splenomegaly, small ascites, s/p CCY A/P: Ms. Elen White is a 53 year old morbidly obese woman with IDDM2, hypothyroidism, decompensated PINEDA cirrhosis c/b ascites and nonbleeding esophageal varices admitted in shock with AMS in the setting of hypoglycemia that has resolved. Negative troponins. She does not appear to have UTI or PNA by exam and UCx. She has been weaned off pressors and back to [facility]. She does have some LE edema, which is likely secondary to patient not taking home diuretics. No evidence of PSE or GI bleeding. LFTs stable. Low MELD although with available labs; no INR. Presentation likely secondary to taking excessive insulin. #Decompensated cirrhosis - continue nadolol - resume lasix and aldactone upon discharge - unclear indication of rifaximin given no prior history of PSE; consider discontinuing - US negative for hepatoma - small ascites, diuretics as above; low salt diet #LE edema: 2/2 cirrhosis #Anemia: without overt bleeding; trend daily #AMS: resolved; avoid sedating meds #IDDM2: SSI #Morbid obesity: counseled on weight loss Dr. Pizanosef will be back tomorrow to take over patient GI care. [facility]
[2018-12-17] MEDS ORDERED: ALDACTONE PO SCH (21:00)
[2018-12-18] MEDS: HUMALOG SUBQ SCH ×6 (00:20→20:00)
[2018-12-18] MEDS: DILAUDID IV PRN ×6 (00:20→20:50)
[2018-12-18 05:11] LABS: BASO# 0.02 X1000 (0.0-0.2); BASO% 0.3 % (0.0-0.8); EOS# 0.52 X1000 (0.0-0.7); EOS% 8.4 % (0.0-10.0); HEMATOCRIT 30.6 % (37.0-47.0); HEMOGLOBIN 9.6 g/dL (12.0-16.0); IMM GRAN# 0.04 X1000 (0.0-0.04); IMM GRAN% 0.6 % (0.0-0.5); LYMPH# 1.08 X1000 (1.2-3.4); LYMPH% 17.4 % (20.5-51.1); MCH 28.4 PG (27-31); MCHC 31.4 g/dL (33-37); MCV 90.5 FL (81-99); MONO% 11.3 % (1.7-9.3); MPV 9.2 FL (7.4-10.4); NEUT# 3.83 X1000 (1.4-6.5); PLT 168 X1000 (130-400); RBC 3.38 XMIL (4.2-5.4); RDW 17.8 % (11.5-14.5); WBC 6.19 X1000 (4.8-10.8)
[2018-12-18 05:32] LABS: MAGNESIUM 1.8 mg/dL (1.5-2.7)
[2018-12-18 06:18] LABS: INR 1.23; PROTIME 16.5 Seconds (11.0-16.0)
[2018-12-18] MEDS: SYNTHROID PO SCH (06:23)
--- NOTE | 2018-12-18 08:32 | EKG Report ---
Test Performed on : 12/15/2018 9:24:06 PM Test Reason : lethargic Blood Pressure : / mmHG Vent. Rate : 064 BPM Atrial Rate : 064 BPM P-R Int : 134 ms QRS Dur : 084 ms QT Int : 460 ms P-R-T Axes : 008 001 000 degrees QTc Int : 474 ms Normal sinus rhythm. Low voltage QRS Nonspecific T wave abnormality Prolonged QT Abnormal ECG When compared with ECG of 04-MAY-2017 00:00, QRS voltage has decreased Unconfirmed Result
[2018-12-18] MEDS: CELEXA PO SCH (08:34)
[2018-12-18] MEDS: XIFAXAN PO SCH ×2 (08:34→20:01)
[2018-12-18] MEDS: PRILOSEC PO SCH (08:34)
[2018-12-18] MEDS: FLEXERIL PO SCH ×3 (08:34→20:00)
[2018-12-18] MEDS: NEURONTIN PO SCH ×3 (08:34→20:01)
--- NOTE | 2018-12-18 08:55 | PROGRESS NOTE ---
DATE: 12/18/2018 SUBJECTIVE: Patient resting comfortably in bed. As per the patient, she has not been complaining of dysuria or any kind of discomfort. No fever and no chills at home. She came in due to low blood pressure and apparently also hypoglycemia. She has been on insulin NovoLog at home and insulin Degludec as well. Her hemoglobin A1c is 5.1. So far she has a negative balance of 1.2 L. Urine culture so far has been negative. I will ask for a blood culture, PT and OT. Gastroenterology department following this patient. I will wait for today's recommendations. Since this patient had an episode of low blood pressure yesterday of 86/54, I will continue holding the NovoLog for now. OBJECTIVE: Temperature 97.4 degrees, pulse 85, respiratory rate 17, blood pressure 112/57, and oxygen saturation of 98 percent on 2 L of nasal cannula.HEENT: Head normocephalic. No trauma. PERRLA. Neck: Supple. No JVD. Central trachea. Chest: Decreased breath sounds globally. No wheezing. No rales. Abdomen: Soft. Protuberant. Somehow distended. Positive bowel sounds. She has a positive wave. Extremities: 3+ lower extremity edema. No clubbing. No cyanosis. Neurological: The patient is alert and oriented x3. No focal deficits. LABORATORY: WBC 6.1, hemoglobin 9.6, hematocrit 30.6, and platelets 168,000. Glucose 138, phosphorus 3, and magnesium 1.8. ASSESSMENT AND PLAN: 1. Patient admitted with shock, possibly related to dehydration and cirrhosis. I am not sure if this is related to sepsis. I do not have a source of infection or symptoms. Gastroenterology Department has been consulted to evaluate this patient and rule out spontaneous bacterial peritonitis. 2. Hypoglycemia resolved. 3. Anemia. Will monitor. 4. Possible urinary tract infection. Culture has been negative. She had no symptoms here or at home. 5. Liver cirrhosis secondary to PINEDA. Apparently, she has some esophageal viruses and she was placed on treatment for that including nadolol which has been stopped, I will wait for Gastroenterology Department evaluation's and recommendations today. 6. Recent back surgery, I will consult Wound Care. I do not see any redness, is covered with a clean dressing. The patient is able to move her lower extremities, but she is weak. 7. Physical deconditioning and generalized weakness. I have requested an evaluation by physical therapy and occupational therapy. cc: Nahid Fuchs MD MTDD
[2018-12-18] MEDS: ROCEPHIN 2 GM in NS 50 ML IV SCH (10:03)
--- NOTE | 2018-12-18 17:32 | GASTROENTEROLOGY PROGRESS NOTE ---
DATE: 12/18/2018 SUBJECTIVE: The patient is awake and alert. She denies any significant complaints. She had been seen over the weekend by Dr. Rob. The patient had been seen by Dr. Rodriguez in the past with diagnosis of cirrhosis of the liver. She had a colonoscopy and EGD in September 2018. Colonoscopy had shown nonbleeding AVMs along with diverticulosis and hemorrhoids. EGD had shown small varices with no banding needed, esophagitis, gastritis, gastropathy, and nonbleeding AVMs. At that time, she was recommended to have a follow up EGD in 2 to 3 years and a follow up colonoscopy in 5 years. The patient reports not remembering what happened Tuesday evening when she was found unresponsive. The first thing she remembered, she was in the emergency room. Prior to that, she had denied any previous episodes of confusion. She had been taking Xifaxan. OBJECTIVE: Vital Signs: Temperature 98.3 degrees, pulse 92, blood pressure 107/54. General: The patient was awake, alert, no acute distress. Respiratory: Lung sounds essentially clear. Abdomen: Obese. Otherwise no significant ascites noted. LABORATORY DATA: Hematology: WBC 6.19, hemoglobin 9.6, hematocrit 30.6, MCV 90.5, platelet 160,000. Chemistry: Sodium 135, potassium 4.4, chloride 104, CO2 of 23, BUN 12, creatinine 0.5, glucose 144, magnesium 1.8, total bilirubin 1.86, AST 42, ALT 19, alkaline phosphatase 193, total protein 4.4, albumin 2.00. Coagulation: Pro-time 16.5, INR 1.23. Abdominal ultrasound showed fatty liver, splenomegaly, small amount of ascites, and history of cholecystectomy. ASSESSMENT AND PLAN: 1. Recent unresponsiveness most likely related to hypoglycemia and hypotension. 2. History of cirrhosis of the liver secondary to PINEDA. Continue current medications. The patient has had recent esophagogastroduodenoscopy and colonoscopy in September. Only small varices noted that did not require banding. Will continue to follow. Further plans will be made according to her progress. I have recommended she follow up with us as an outpatient once discharged. I have discussed this case with Dr. Russo. Dictated by BATOOL Bee for Frantz Russo MD cc: BATOOL Meneses MD
[2018-12-19] MEDS: HUMALOG SUBQ SCH ×6 (00:49→20:47)
[2018-12-19] MEDS: DILAUDID IV PRN ×5 (01:25→19:09)
[2018-12-19] MEDS: SYNTHROID PO SCH (06:47)
[2018-12-19 07:09] LABS: BASO# 0.04 X1000 (0.0-0.2); BASO% 0.7 % (0.0-0.8); EOS# 0.43 X1000 (0.0-0.7); EOS% 7.7 % (0.0-10.0); HEMATOCRIT 29.8 % (37.0-47.0); HEMOGLOBIN 9.5 g/dL (12.0-16.0); IMM GRAN# 0.03 X1000 (0.0-0.04); IMM GRAN% 0.5 % (0.0-0.5); LYMPH# 0.97 X1000 (1.2-3.4); LYMPH% 17.4 % (20.5-51.1); MCH 28.4 PG (27-31); MCHC 31.9 g/dL (33-37); MONO# 0.53 X1000 (0.11-0.59); MONO% 9.5 % (1.7-9.3); MPV 9.6 FL (7.4-10.4); NEUT# 3.58 X1000 (1.4-6.5); NEUT% 64.2 % (42.2-75.2); PLT 156 X1000 (130-400); RBC 3.35 XMIL (4.2-5.4); RDW 17.6 % (11.5-14.5); WBC 5.58 X1000 (4.8-10.8)
[2018-12-19 07:20] LABS: AGAP 7; ALB/GLOB RATIO 0.9; ALBUMIN 2.1 g/dL (3.5-5.0); ALKALINE PHOSPHATASE 213 U/L (32-104); BUN 8 mg/dL (8-22); CALCIUM 7.7 mg/dL (8.8-10.2); CHLORIDE 105 mmol/L (98-107); COSMO 277; CREATININE 0.4 mg/dL (0.5-0.9); ESTIMATED GFR > 60; GLUCOSE 112 mg/dL (70-104); GOT 41 U/L (10-30); GPT 19 U/L (10-36); POTASSIUM 4.3 mmol/L (3.5-5.1); SODIUM 139 mmol/L (136-145); TCO2 27 mmol/L (25-35); TOTAL BILIRUBIN 2.05 mg/dL (0.20-1.00); TOTAL PROTEIN 4.4 g/dL (6.3-8.3)
[2018-12-19] MEDS: PRILOSEC PO SCH (10:02)
[2018-12-19] MEDS: CELEXA PO SCH (10:02)
[2018-12-19] MEDS: FLEXERIL PO SCH ×3 (10:02→20:47)
[2018-12-19] MEDS: XIFAXAN PO SCH ×2 (10:02→20:47)
[2018-12-19] MEDS: NEURONTIN PO SCH ×3 (10:02→20:47)
[2018-12-19] MEDS: ROCEPHIN 2 GM in NS 50 ML IV SCH (10:55)
--- NOTE | 2018-12-19 14:14 | GASTROENTEROLOGY PROGRESS NOTE ---
DATE: 12/19/2018 SUBJECTIVE: Patient is awake and alert. No acute distress. She was moved from [facility] to the fourth floor. Her blood pressure has been stable. Recent glucose monitoring has been stable. The patient had an abdominal ultrasound showing a small amount of ascites. OBJECTIVE: Vital Signs: Temperature 98.6 degrees, pulse 99, respirations 18, blood pressure 118/47. General: Patient is awake and alert, in no acute distress. Abdomen: Obese. Otherwise soft, with positive bowel sounds. Laboratory: Hematology: WBC 5.58, hemoglobin 9.5, hematocrit 29.8, MCV 89.0. Chemistry: Sodium 139, potassium 4.3, chloride 105, CO2 27, BUN 8, creatinine 0.4, glucose 112. Total bilirubin 2.05, AST 41, ALT 19, alkaline phosphatase 213. ASSESSMENT AND PLAN: 1. Recent hypotensive and hypoglycemic episodes. Patient found unresponsive and brought in to the hospital by ambulance. She is awake and alert now. Her ammonia level was normal on admission. 2. History of cirrhosis of the liver secondary to nonalcoholic steatohepatitis. Continue current medications. The patient states she has not been taking her diuretics due to inability to get up and down well. She has had some problems with her back. Would recommend restarting her diuretics once her blood pressure is stable enough. Recommend she follow up with us as an outpatient. She just had an esophagogastroduodenoscopy and colonoscopy in September by Dr. Rodriguez. Only small varices were noted at that time that did not require banding. I have discussed this case with Dr. Russo and, again, we recommend patient follow up with us as an outpatient once she is discharged. Dictated by BATOOL Bee for Frantz Russo MD cc: BATOOL Meneses MD
[2018-12-19] MEDS: XANAX PO PRN (14:56)
--- NOTE | 2018-12-19 15:56 | PROGRESS NOTE ---
DATE: 12/19/2018 SUBJECTIVE: Patient is resting comfortably in bed. She is not complaining of dysuria. No fever. No chills. She came in because of low pressure and hypoglycemia. She was confused also. Hemoglobin A1c 5.1. And she has been on insulin degludec and NovoLog at home. I believe she has been having multiple episodes of hypoglycemia before. I will put her back on her home Lasix and spironolactone, I will see how she does, and then tomorrow if she is doing fine, I will start this patient again on nadolol. I will continue with physical therapy and occupational therapy, but this patient is extremely weak. I have requested an evaluation by the social service assistant to see if this patient qualifies to go to a rehabilitation center. OBJECTIVE: Vital Signs: Temperature 98.6 degrees, pulse 99, respiratory rate 18, blood pressure 118/47, oxygen saturation 96 on room air. HEENT: Head normocephalic, no trauma. PERRLA. Neck: Supple. No JVD. No masses. Central trachea. Chest: Decreased breath sounds globally. No wheezing. No rales. Abdomen: Soft, protuberant, [*] distended. Positive bowel sounds. She has a positive wave sign and abdominal wall edema. Extremities: 3+ lower extremity edema. No clubbing. No cyanosis. Neurological: This patient is alert. She is oriented x3. No focal deficits. LABORATORY: WBC 5.5, hemoglobin 9.5, hematocrit 29.8, platelets 156,000. Sodium 139, potassium 4.3, chloride 105, bicarbonate 27, BUN 8, creatinine 0.4, glucose 112, calcium 7.7, total bilirubin 2, AST 41, ALT 19, alkaline phosphatase 213, and albumin 2.1. ASSESSMENT AND PLAN: 1. Patient admitted with shock, probably related to dehydration and cirrhosis. I do not have any source of infection, and she is not complaining of dysuria. Gastroenterology department following this patient. 2. Hypoglycemia, resolved. I will continue with sliding scale insulin. She is on insulin degludec and NovoLog at home, I believe she has been having multiple episodes of hypoglycemia. Her hemoglobin A1c 5.1. 3. Anemia. We will monitor. 4. Possible urinary tract infection. Cultures so far negative. No symptoms at all, here or at home. 5. Liver cirrhosis secondary to nonalcoholic steatohepatitis (PINEDA). Apparently she has mild esophageal varices, and she was placed on treatment for that, including nadolol which I have stopped due to the hypotension. Hopefully tomorrow, depending on the blood pressure, I will put her back on that medication, but probably I will decrease the dose. 6. Recent back surgery. We will continue with wound care. I do not see any redness or signs of infection at this moment. 7. Physical deconditioning and generalized weakness. She is not able to walk and [*]it is really hard for her to go to the bedside commode. She needed 2 nurses to help her out. We will continue physical therapy and occupational therapy, and likely this patient needs to go to a rehabilitation center. cc: Nahid Fuchs MD
[2018-12-19] MEDS: LASIX PO SCH (19:12)
[2018-12-19] MEDS: ALDACTONE PO SCH (20:47)
[2018-12-20] MEDS: HUMALOG SUBQ SCH ×6 (01:28→20:05)
[2018-12-20] MEDS: DILAUDID IV PRN ×5 (03:56→22:57)
[2018-12-20] MEDS: XANAX PO PRN ×2 (04:39→15:42)
[2018-12-20] MEDS: SYNTHROID PO SCH ×2 (05:05→06:37)
[2018-12-20 07:31] LABS: AGAP 8; ALB/GLOB RATIO 0.8; ALBUMIN 2.1 g/dL (3.5-5.0); ALKALINE PHOSPHATASE 244 U/L (32-104); BUN 7 mg/dL (8-22); CALCIUM 7.9 mg/dL (8.8-10.2); CHLORIDE 105 mmol/L (98-107); COSMO 279; CREATININE 0.4 mg/dL (0.5-0.9); ESTIMATED GFR > 60; GLUCOSE 153 mg/dL (70-104); GOT 44 U/L (10-30); GPT 19 U/L (10-36); MAGNESIUM 1.6 mg/dL (1.5-2.7); POTASSIUM 4.3 mmol/L (3.5-5.1); SODIUM 139 mmol/L (136-145); TCO2 26 mmol/L (25-35); TOTAL BILIRUBIN 2.27 mg/dL (0.20-1.00); TOTAL PROTEIN 4.7 g/dL (6.3-8.3)
[2018-12-20] MEDS: ALDACTONE PO SCH ×2 (08:38→20:38)
[2018-12-20] MEDS: PRILOSEC PO SCH (08:38)
[2018-12-20] MEDS: XIFAXAN PO SCH ×2 (08:38→20:38)
[2018-12-20] MEDS: ROCEPHIN 2 GM in NS 50 ML IV SCH ×2 (08:38→11:36)
[2018-12-20] MEDS: CELEXA PO SCH (08:39)
[2018-12-20] MEDS: FLEXERIL PO SCH ×3 (08:39→20:38)
[2018-12-20] MEDS: LASIX PO SCH (08:39)
[2018-12-20] MEDS: NEURONTIN PO SCH ×3 (08:39→20:38)
--- NOTE | 2018-12-20 15:14 | GASTROENTEROLOGY PROGRESS NOTE ---
DATE: 12/20/2018 SUBJECTIVE: The patient was asleep at the time of my evaluation. She was in no acute distress. She was awake and alert, and aroused easily. She states that during the night, she tried to get up to go to the bathroom with the nurse's help and she fell. She has had problems getting up and down, and walking since her back surgery. OBJECTIVE: Vital Signs: Temperature 98.0 degrees, pulse 98, respirations 18, blood pressure 118/48. General: The patient is awake and alert, in no acute distress. Laboratory: Hematology: WBC 5.58, hemoglobin 9.5, hematocrit 29.8, MCV 89.0, platelets 156,000. Chemistry: Sodium 139, potassium 4.3, chloride 105, CO2 26, BUN 7, creatinine 0.4, glucose 153. ASSESSMENT AND PLAN: 1. Recent unresponsiveness, most likely related to hypotension and hypoglycemia. 2. 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 Patient states she had not been taking her diuretics since her back surgery because she was unable to get up and down frequently. I believe those have been restarted in the hospital. Recommend she continue on her diuretics and restart nadolol once the blood pressure is stable. I recommend she follow with us as an outpatient. I believe she will go to rehab. She can follow in our office after her rehab stay unless needed sooner. I have discussed this case with Dr. Russo. Dictated by BATOOL Bee for Frantz Russo MD cc: BATOOL Meneses MD [facility]
--- NOTE | 2018-12-20 16:40 | PROGRESS NOTE ---
DATE: 12/20/2018 SUBJECTIVE: Patient is resting comfortably in bed. She is complaining of generalized weakness. She is not complaining of dysuria. No fever. No chills. I put this patient back on furosemide and Aldactone. Today I restarted this patient on nadolol as well. She was taking 40 mg daily at home and I put her back on just 20 to start with. I will continue with physical therapy and hopefully this patient can be discharged to a rehab center soon. OBJECTIVE: Vital Signs: Temperature 98 degrees, pulse 98, respiratory rate 18, blood pressure 118/48, oxygen saturation 95% on room air. HEENT: Head normocephalic. No trauma. PERRLA. Neck: Supple. No JVD. No masses. Central trachea. Chest: Decreased breath sounds globally. No wheezing. Some crepitus at the bases. Abdomen: Soft, protuberant, moderately distended. Positive bowel sounds. She has a positive wave sign and abdominal wall edema. Extremities: There is 2+ to 3+ lower extremity edema. No clubbing. No cyanosis. Neurological: The patient is alert and oriented x3. No focal deficits. LABORATORY: Sodium 139, potassium 4.3, chloride 105, bicarbonate 26, BUN 7, creatinine 0.4, glucose 153, calcium 7.9, albumin 2.1. ASSESSMENT AND PLAN: 1. Patient admitted with shock, likely secondary to dehydration and cirrhosis. I do not have any source of infection. She is not complaining of dysuria. Gastroenterology Department following, resolved. 2. Hypoglycemia, resolved. I will continue with sliding scale insulin and pattern of blood sugar. At home she is on insulin degludec and NovoLog. I believe I will continue only with NovoLog 3 times a day and I will stop the degludec. Her hemoglobin A1c is 5.1 and probably she has been having more hypoglycemia at home. 3. Anemia. Will monitor. 4. Possible urinary tract infection. Cultures so far negative. No symptoms at all. 5. Liver cirrhosis secondary to nonalcoholic steatohepatitis. Apparently also she has mild esophageal varices and she has been placed on treatment for that including nadolol which I have continued today. Hopefully, we will continue with same management and the blood pressure will be stable. Also I put this patient back on her furosemide and Aldactone. 6. Recent back surgery. We will continue wound care. I do not see any redness or signs of infection. Pending rehab center placement. 7. Physical deconditioning and generalized weakness. At this moment, she is not able to walk and it is really hard for her to go to the bedside commode. She needs to go to a rehab center so she can get her strength back. cc: Nahid Fuchs MD
[2018-12-20] MEDS: CORGARD PO SCH (18:30)
[2018-12-21] MEDS: HUMALOG SUBQ SCH ×6 (02:28→22:28)
[2018-12-21] MEDS: DILAUDID IV PRN ×4 (03:48→21:10)
[2018-12-21] MEDS: SYNTHROID PO SCH (06:04)
[2018-12-21 07:01] LABS: AGAP 11; ALB/GLOB RATIO 0.8; ALKALINE PHOSPHATASE 231 U/L (32-104); BUN 7 mg/dL (8-22); CALCIUM 7.5 mg/dL (8.8-10.2); CHLORIDE 102 mmol/L (98-107); COSMO 276; CREATININE 0.4 mg/dL (0.5-0.9); ESTIMATED GFR > 60; GLUCOSE 144 mg/dL (70-104); GOT 45 U/L (10-30); GPT 18 U/L (10-36); POTASSIUM 3.6 mmol/L (3.5-5.1); SODIUM 138 mmol/L (136-145); TCO2 25 mmol/L (25-35); TOTAL BILIRUBIN 2.23 mg/dL (0.20-1.00); TOTAL PROTEIN 4.6 g/dL (6.3-8.3)
[2018-12-21] MEDS: ALDACTONE PO SCH ×2 (08:37→20:41)
[2018-12-21] MEDS: CELEXA PO SCH (08:37)
[2018-12-21] MEDS: FLEXERIL PO SCH ×3 (08:37→20:41)
[2018-12-21] MEDS: CORGARD PO SCH (08:37)
[2018-12-21] MEDS: LASIX PO SCH (08:38)
[2018-12-21] MEDS: PRILOSEC PO SCH (08:38)
[2018-12-21] MEDS: NEURONTIN PO SCH ×3 (08:38→20:41)
[2018-12-21] MEDS: XIFAXAN PO SCH ×2 (08:38→20:41)
[2018-12-21] MEDS: ROCEPHIN 2 GM in NS 50 ML IV SCH (10:42)
[2018-12-21] MEDS: XANAX PO PRN (12:58)
--- NOTE | 2018-12-21 14:41 | PROGRESS NOTE ---
DATE: 12/21/2018 SUBJECTIVE: No acute events overnight. This patient is feeling better. She is still complaining of generalized weakness. OBJECTIVE: Vital signs: Temperature 98.4 degrees, pulse 100, respiratory rate 20, blood pressure 101/78, oxygen saturation 98 on 2 L of nasal cannula. HEENT: Head normocephalic, no trauma. PERRLA. Neck: Supple. No JVD. No masses. Central trachea. Chest: Decreased breath sounds globally. No wheezing. Some crepitus at the bases. Abdomen: Soft, protuberant, moderately distended. Positive bowel sounds. She has a positive wave sign and abdominal wall edema, mild. Extremities: There is 2+ to 3+ lower extremity edema. No clubbing. No cyanosis. Neurological examination: The patient is alert and oriented x3. No focal deficits. LABORATORY: Sodium 136, potassium 3.6, chloride 102, bicarbonate 25. BUN 7, creatinine 0.4, glucose 144, calcium 7.5. AST 45, ALT 18, alkaline phosphatase 231, bilirubin 2.2, albumin 2. ASSESSMENT AND PLAN: 1. Patient admitted with shock, likely hypovolemic due to dehydration and cirrhosis. I do not have any source of infection. No dysuria. Gastroenterology Department following this patient. Resolved. 2. Hypoglycemia, resolved. Continue with sliding scale insulin and pattern of blood sugar at home. She is on insulin Degludec and NovoLog, I will continue only with NovoLog 3 times a day and then I will stop the Degludec since the hemoglobin A1c 5.1, and probably she has been having more hypoglycemic events at home. 3. Anemia. Will monitor. 4. Possible urinary tract infection. Cultures so far negative, and she is not having dysuria. 5. Liver cirrhosis secondary to nonalcoholic steatohepatitis. Continue with home medications. Gastroenterology Department already evaluated this patient. 6. Recent back surgery. I will continue with wound care. I do not see any redness or signs of infection. Pending rehabilitation center placement. 7. Physical deconditioning and generalized weakness. At this moment, she is not able to walk by herself or even stand up. She needs to go to a rehabilitation center so she can get her strength back. cc: Nahid Fuchs MD
[2018-12-22] MEDS: DILAUDID IV PRN ×3 (04:09→12:54)
[2018-12-22] MEDS: HUMALOG SUBQ SCH (04:49)
[2018-12-22] MEDS: SYNTHROID PO SCH (06:00)
[2018-12-22 06:35] LABS: BASO# 0.03 X1000 (0.0-0.2); BASO% 0.4 % (0.0-0.8); EOS# 0.47 X1000 (0.0-0.7); EOS% 6.7 % (0.0-10.0); HEMATOCRIT 31.2 % (37.0-47.0); HEMOGLOBIN 9.8 g/dL (12.0-16.0); IMM GRAN# 0.04 X1000 (0.0-0.04); IMM GRAN% 0.6 % (0.0-0.5); LYMPH# 1.01 X1000 (1.2-3.4); LYMPH% 14.4 % (20.5-51.1); MCH 27.7 PG (27-31); MCHC 31.4 g/dL (33-37); MCV 88.1 FL (81-99); MONO# 0.95 X1000 (0.11-0.59); MONO% 13.6 % (1.7-9.3); MPV 9.8 FL (7.4-10.4); NEUT% 64.3 % (42.2-75.2); PLT 164 X1000 (130-400); RBC 3.54 XMIL (4.2-5.4); RDW 17.5 % (11.5-14.5)
[2018-12-22 07:18] LABS: AGAP 7; ALB/GLOB RATIO 0.8; ALBUMIN 2.2 g/dL (3.5-5.0); ALKALINE PHOSPHATASE 250 U/L (32-104); BUN 8 mg/dL (8-22); CALCIUM 7.7 mg/dL (8.8-10.2); CHLORIDE 100 mmol/L (98-107); COSMO 274; CREATININE 0.4 mg/dL (0.5-0.9); ESTIMATED GFR > 60; GLUCOSE 123 mg/dL (70-104); GOT 48 U/L (10-30); GPT 18 U/L (10-36); POTASSIUM 3.5 mmol/L (3.5-5.1); SODIUM 137 mmol/L (136-145); TCO2 30 mmol/L (25-35); TOTAL BILIRUBIN 2.26 mg/dL (0.20-1.00); TOTAL PROTEIN 4.9 g/dL (6.3-8.3)
[2018-12-22] MEDS: PRILOSEC PO SCH (09:52)
[2018-12-22] MEDS: XIFAXAN PO SCH (09:52)
[2018-12-22] MEDS: LASIX PO SCH (09:52)
[2018-12-22] MEDS: ROCEPHIN 2 GM in NS 50 ML IV SCH (09:52)
[2018-12-22] MEDS: NEURONTIN PO SCH (09:52)
[2018-12-22] MEDS: FLEXERIL PO SCH (09:52)
[2018-12-22] MEDS: CORGARD PO SCH (09:52)
[2018-12-22] MEDS: CELEXA PO SCH (09:52)
[2018-12-22] MEDS: ALDACTONE PO SCH (09:52)
[2018-12-22 11:34] VITALS: BP 133/60
--- NOTE | 2018-12-22 11:48 | DISCHARGE SUMMARY ---
ADMISSION DATE: 12/15/2018 DISCHARGE DATE: 12/22/2018 DIAGNOSES: 1. Shock, likely hypovolemic, due to dehydration and cirrhosis, resolved. 2. Hypoglycemia, resolved. 3. Anemia. 4. Possible urinary tract infection with negative cultures. 5. Liver cirrhosis secondary to nonalcoholic steatohepatitis. 6. History of esophageal varices. 7. Physical conditioning and generalized weakness. 8. Recent back surgery. DIAGNOSTICS: 1. 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 No visible acute intracranial abnormality. No hemorrhage, no mass effect. 2. Chest x-ray revealed mildly shallow inspiration, questionable infiltrate versus artifact of patient rotation on the left. 3. Pulmonary arteriogram revealed no evidence of pulmonary embolism. 4. Abdominal ultrasound revealed fatty infiltration of the liver, splenomegaly, a small amount of ascites and cholecystectomy. CONSULTATION: Dr. Vick Rob in Gastroenterology. HOSPITAL COURSE: Ms. White presented to the emergency room with altered mental status. She was found have a blood sugar of 50, for which she was treated with half of an amp of D 50. Blood sugar stayed in the 90s and her mental status did return to baseline. She was hypotensive, initially receiving Ricardo-Synephrine which thankfully we were able to wean since blood pressures have stayed in the 90 to 120s over 50 to 70s range. She was evaluated by Gastroenterology for [facility]. Nadolol was continued. Medications were adjusted per their expertise. During the hospitalization, she was on routine blood sugar checks. We held her long-acting insulin covering her with sliding scale. It was discovered that the patient had stopped taking her diuretics as she had back surgery and it was painful getting up and down, going to the bathroom. After many discussions on the importance of adhering to her prescribed regimen she agreed to taking her medications as prescribed. DISCHARGE PHYSICAL EXAMINATION: Vital Signs: Blood pressure is 121/50 with a heart rate of 90, respirations are 16, temperature is 98.2 degrees with room air saturations 96 to 100 percent. Cardiovascular: Regular rate and rhythm. S1 and S2 appreciated. She has 2+ to 3+ lower extremity edema. Calves are nontender with peripheral pulses palpable x4 extremities. Pulmonary: Breath sounds are clear. Chest rises and falls symmetric with respiration. Chest wall is nontender to palpation. Gastrointestinal: She has a soft, protuberant, distended abdomen with positive wave sign. Bowel sounds are present in all 4 quadrants. Neurologic: She is alert and oriented x3. DISCHARGE MEDICATIONS: 1. Spironolactone 100 mg oral twice daily. 2. Celexa 20 mg oral daily. 3. Cyclobenzaprine 10 mg oral three times a day. 4. Gabapentin 300 mg oral three times a day. 5. Lasix 80 mg oral daily. 6. Prilosec 40 mg oral daily. 7. Levothyroxine 100 mcg oral daily. 8. Xanax 0.5 oral twice daily. 9. Xifaxan 550 mg oral twice daily. 10. Nadolol 20 mg oral daily. 11. NovoLog insulin as directed. DISPOSITION: The patient is being discharged in transfer to [facility] in stable condition with family members present. TIME SPENT: This is a greater than 30 minute discharge. Dictated by BATOOL Viera for Nahid Fuchs MD This chart was documented by, BATOOL Viera and accurately reflects the services performed, treatment plan and medical decisions as attested by the providers signature Nahid Fuchs MD. cc: BATOOL Viera MD [facility]
--- NOTE | 2018-12-22 17:10 | GASTROENTEROLOGY PROGRESS NOTE ---
DATE: 12/22/2018 SUBJECTIVE: Patient is awake, alert, no acute distress. She states she was able to walk in the halls with physical therapy. OBJECTIVE: Vital Signs: Temperature 98.3 degrees, pulse 98, respirations 20, blood pressure 133/60. General: Patient is awake, alert, no acute distress. LABORATORY: Hematology. WBC 7.0, hemoglobin 9.8, hematocrit 31.2, MCV 88.1, platelet 164,000. Chemistry. Sodium 137, potassium 3.5, chloride 100, CO2 30, BUN 8, creatinine 0.4, glucose 123, calcium 7.7, total bilirubin 2.26, AST 48, ALT 18, alkaline phosphatase 250. ASSESSMENT AND PLAN: 1. Recent unresponsiveness most likely related to hypotension and hypoglycemia which has resolved. 2. Cirrhosis of the liver. History of nonalcoholic steatohepatitis. Continue current medications. Recommend patient follow up with us as an outpatient. I believe she will go to rehab. She can follow up with us after her rehab stay. I have discussed this case with Dr. Russo. Dictated by BATOOL Bee for Frantz Russo MD cc: BATOOL Meneses MD
== END 2018-12-22 14:40 | DRG 637 ==
LOC: SUPCPDRO → ED 21:05 → SUATTDRO 12-16 04:52 → EDIPHOLD 12-16 04:52 → ICU 12-16 15:02 → 3S 12-17 17:07 → 4N 12-18 18:01
PROVIDERS: ATTEND Internal Medicine
CPT/HCPCS: 51702; 70450; 71010; 71045; 71275; 76700; 80048; 80053; 80061; 81001; 82140; 82550; 82805; 82948; 83036; 83605; 83721; 83735; 84100; 84443; 84484; 85025; 85610; 87040; 87088; 93005; 96361; 96365; 96366; 96367; 96375; 96376; 97110; 97162; 97166; 97530; 97535; 99285; 99291; A9270; J0696; J1170; J1815; J1956; J2370; J7030; J7040; J7050; Q9967; XXXXX

== ENCOUNTER 2019-01-17 09:45 | Inpatient (IN) ==
--- NOTE | 2019-01-17 10:10 | PROVIDER DOCUMENTATION ---
HPI-Musculoskeletal Pain/Inj - GENERAL Chief Complaint: Fall Stated Complaint: KEEP FALLING/RIB PAIN Time Seen by Provider: 01/17/19 10:07 - HX OF PRESENT ILLNESS-MUSKULOSKELTAL Nature of Presenting Problem: reports s/p fall 1-2 times since she was home from rehab. one episode slipped out of the wheelchair and no injury. second time this past tuesday, she stood up and ambulated got caught on her blanket around her bed, fell and injured her left rib. sob, pain on inspiration. has the incentive spirometry at home but did not used it per hsuband. history of v1 fx with hardware repaired x2. Review of Systems - Adult - REVIEW OF SYSTEMS - ADULT Constitutional: reports: no symptoms reported Eyes: reports: no symptoms reported Ears, Nose, Mouth & Throat: reports: no symptoms reported Cardiovascular: reports: no symptoms reported Respiratory: reports: no symptoms reported Gastrointestinal: reports: no symptoms reported Genitourinary: reports: no symptoms reported Musculoskeletal: reports: no symptoms reported Integumentary: reports: no symptoms reported Neurological: reports: no symptoms reported Psychiatric: reports: no symptoms reported Endocrine: reports: no symptoms reported Hematologic/Lymphatic: reports: no symptoms reported Allergic/Immunologic: reports: no symptoms reported All Other Systems: Reviewed and Negative Past History - Adult - PAST MEDICAL HISTORY-ADULT Review of Records: reports: Old Records Reviewed, Nursing Assessment Review, Medications Reviewed, Social history reviewed & non-contributory. Major Childhood Illnesses: reports: denies history Cardiovascular: reports: hyperlipidemia Respiratory: reports: denies history Gastrointestinal: reports: liver disease, other (cirrhosis) Obstetrical/Gynecological: reports: denies history Genitourinary: reports: denies history Musculoskeletal: reports: denies history Neurological: reports: CVA, TIA Psychiatric: reports: anxiety Endocrine/Immune: reports: Diabetes, thyroid disorder Other Conditions: reports: denies history - PRIOR SURGERIES/PROCEDURES Surgical/Procedure History: reports: cholecystectomy, hysterectomy, , tonsillectomy, orthopedic (extremity), back/neck - IMMUNIZATION STATUS Childhood Immunizations: See Nurse Assessment Flu Vaccine: See Nurse Assessment - FAMILY HISTORY Family History: reviewed, not pertinent - SOCIAL HISTORY Smoking: denies Substance Use: none/never Alcohol Use Frequency: never Living Situation: family Physical Exam-Injury Related - Physical Exam-Injury Related Initial Vital Signs Reviewed: Yes General Appearance: appears well, alert, moderate distress Eyes: PERRL/EOMI Head, Ears, Nose, Mouth & Throat: normocephalic/atraumatic, moist mucous membranes Neck: non-tender, full range of motion Respiratory: lungs clear, pain on inspiration, rib tenderness Cardiovascular: normal peripheral pulses, tachycardia Abdominal Exam: normal bowel sounds, non tender, soft Back Exam: normal inspection, no CVA tenderness, no vertebral tenderness Extremity: normal range of motion, non-tender, normal gait, normal inspection, pedal edema (2+) Integumentary: normal color, warm/dry Neurologic: grossly normal, no motor/sensory deficits Psych/Mental Status: normal mood/affect, normal thought content, normal thought process, oriented x 3 Progress - PLAN OF CARE/RESULTS Progress/Plan/Lab Results: Vital Signs - 8 hr 01/17/19 09:47 Temperature 97.5 F L Pulse Rate 96 H Respiratory Rate 20 Blood Pressure 137/68 O2 Sat by Pulse Oximetry 99 Laboratory Results - last 24 hr 01/17/19 01/17/19 01/17/19 10:55 10:55 10:55 WBC 4.61 L RBC 4.08 L Hgb 10.8 L Hct 33.9 L MCV 83.1 MCH 26.5 L MCHC 31.9 L RDW Std Deviation 16.3 H Plt Count 189 MPV 9.4 Immature Gran % (Auto) 0.4 Neut % (Auto) 57.5 Lymph % (Auto) 14.8 L [place] % (Auto) 14.5 H Eos % (Auto) 12.1 H Baso % (Auto) 0.7 Immature Gran # (Auto) 0.02 Neut # (Auto) 2.65 Lymph # (Auto) 0.68 L [place] # (Auto) 0.67 H Eos # (Auto) 0.56 Baso # (Auto) 0.03 Sodium 135 L Potassium 3.9 Chloride 102 Carbon Dioxide 26 Anion Gap 7 BUN 4 L Creatinine 0.5 Estimated GFR/1.73 m2 > 60 BUN/Creatinine Ratio 8 Glucose 127 H Calculated Osmolality 269 Calcium 7.7 L Total Bilirubin 1.92 H AST 40 H ALT 17 Alkaline Phosphatase 202 H Pij-M-Yfzhvtnmums Pept 87 Total Protein 5.4 L Albumin 2.5 L Globulin 2.9 Albumin/Globulin Ratio 0.9 Orders Category Date Time Status RIBS UNILAT W/PA CHEST RIGHT [RAD] Stat Exams 01/17/19 10:16 Completed US ABDOMEN-COMPLETE [US] Stat Exams 01/17/19 10:51 Completed BNP [PRO B-NATRIURETIC PEPTIDE] Stat Lab 01/17/19 10:55 Completed CBC WITH ELECTRONIC DIFF [HEME] Stat Lab 01/17/19 10:55 Completed CMP [COMPREHENSIVE METABOLIC PANEL] [CHEM] Stat Lab 01/17/19 10:55 Completed Lidocaine 5% Patch [Lidoderm] Med 01/17/19 10:41 Discontinued 1 each TOP NOW ONE Oxycodone E.r. [Oxycontin] Med 01/17/19 10:41 Discontinued 10 mg PO NOW ONE [facility] [address] , [address], [place] [address] Department of Imaging Patient: JOEY SARGENT ADM Date: 01/17/19 MR#: [id number] : 1965 ADM Status: PRE ER Age/Sex: 53/F Room/Bed: Loc: ED Ordering Physician: Kristi Pretty MD Family Physician: Dionisio Burroughs MD Reason for Procedure: left Signed RIBS UNILAT W/PA CHEST RIGHT - 01/17/2019 INDICATION: left TECHNIQUE: Five views COMPARISON: 12/15/2018 FINDINGS: There is some mild infiltrate at the left lower lobe. There is a stent in the region of the liver compatible with a TIPS. There is probably a trace left pleural effusion. The right lung is clear. There are thoracolumbar spine fusion rods bilaterally. The ribs appear in tact. IMPRESSION: Nonspecific findings. Electronically signed by Yeison Belcher 01/17/2019 10:36 AM 01/17/19 1036 Interpreting Physician: Yeison Belcher MD Dictated Date/Time: 01/17/19 1035 cc: Kristi Pretty MD; Dionisio Burroughs MD Result Diagrams: 01/17/19 10:55 01/17/19 10:55 - CONSULTS/PCP/HOSPITALIST Notification #1 *Consult/PCP/Hospitalist*: Mia RENAE Time Discussed: 13:46 (cirrhosis with ascites) Consult Disposition: Admit Departure - Departure Date of Disposition Decision: 01/17/19 Time of Disposition Decision: 13:46 DIAGNOSIS: Cirrhosis of liver with ascites Disposition: ADMITTED INPATIENT 09 Certified Medical Emergency: Emergent Condition: Stable Referrals and Follow-Ups: Dionisio Burroughs MD [Primary Care Provider] - - Critical Care Note This patient required my direct & personal management of CC.: No Attestation - Physician/ JEFFREY Attestation The physician spent face to face time with patient:: Yes Advanced Practice Provider documentation review:: Supervising physician onsite and consulted in the evaluation and care of this patient. The physician did have a face to face encounter with the patient.
--- NOTE | 2019-01-17 10:39 | Diag Imaging Result Doc PS360 ---
RIBS UNILAT W/PA CHEST RIGHT - 01/17/2019 INDICATION: left TECHNIQUE: Five views COMPARISON: 12/15/2018 FINDINGS: There is some mild infiltrate at the left lower lobe. There is a stent in the region of the liver compatible with a TIPS. There is probably a trace left pleural effusion. The right lung is clear. There are thoracolumbar spine fusion rods bilaterally. The ribs appear intact. IMPRESSION: Nonspecific findings. Electronically signed by Yeison Belcher 01/17/2019 10:36 AM
[2019-01-17] MEDS ORDERED: LIDODERM TOP ONE (10:41)
[2019-01-17] MEDS ORDERED: OXYCONTIN PO ONE (10:41)
[2019-01-17 11:07] LABS: BASO# 0.03 X1000 (0.0-0.2); BASO% 0.7 % (0.0-0.8); EOS# 0.56 X1000 (0.0-0.7); EOS% 12.1 % (0.0-10.0); HEMATOCRIT 33.9 % (37.0-47.0); HEMOGLOBIN 10.8 g/dL (12.0-16.0); IMM GRAN# 0.02 X1000 (0.0-0.04); IMM GRAN% 0.4 % (0.0-0.5); LYMPH# 0.68 X1000 (1.2-3.4); LYMPH% 14.8 % (20.5-51.1); MCH 26.5 PG (27-31); MCHC 31.9 g/dL (33-37); MCV 83.1 FL (81-99); MONO# 0.67 X1000 (0.11-0.59); MONO% 14.5 % (1.7-9.3); MPV 9.4 FL (7.4-10.4); NEUT# 2.65 X1000 (1.4-6.5); NEUT% 57.5 % (42.2-75.2); PLT 189 X1000 (130-400); RBC 4.08 XMIL (4.2-5.4); RDW 16.3 % (11.5-14.5); WBC 4.61 X1000 (4.8-10.8)
[2019-01-17 11:29] LABS: AGAP 7; ALB/GLOB RATIO 0.9; ALBUMIN 2.5 g/dL (3.5-5.0); ALKALINE PHOSPHATASE 202 U/L (32-104); BUN 4 mg/dL (8-22); CALCIUM 7.7 mg/dL (8.8-10.2); CHLORIDE 102 mmol/L (98-107); COSMO 269; CREATININE 0.5 mg/dL (0.5-0.9); ESTIMATED GFR > 60; GLUCOSE 127 mg/dL (70-104); GOT 40 U/L (10-30); GPT 17 U/L (10-36); POTASSIUM 3.9 mmol/L (3.5-5.1); SODIUM 135 mmol/L (136-145); TCO2 26 mmol/L (25-35); TOTAL BILIRUBIN 1.92 mg/dL (0.20-1.00); TOTAL PROTEIN 5.4 g/dL (6.3-8.3)
--- NOTE | 2019-01-17 11:57 | Diag Imaging Result Doc PS360 ---
EXAM: US ABDOMEN-COMPLETE INDICATION: cirrhosis ascites COMPARISON: 12/17/2018 FINDINGS: Exam is suboptimal due to the patient's condition. There has been a prior cholecystectomy. The common bile duct is normal in diameter. The contour of the liver is somewhat nodular and the liver echotexture is heterogeneous indicating cirrhosis. No well-defined hepatic mass is identified. Ascites is noted tracking around the liver. Portal venous flow is hepatopetal. The pancreas is obscured. The aorta and IVC are obscured. There is splenomegaly similar to the previous study. The kidneys are grossly unremarkable. IMPRESSION: 1.Nodular liver contour suggesting cirrhosis. 2.Ascites. 3.Essentially stable splenomegaly. Electronically signed by Grady Rodriguez 01/17/2019 11:54 AM
[2019-01-17] MEDS ORDERED: ZOFRAN IV PRN (15:10)
[2019-01-17] MEDS ORDERED: LASIX IV ONE (15:56)
[2019-01-17] MEDS ORDERED: LASIX PO ONE (15:57)
[2019-01-17] MEDS ORDERED: ALDACTONE PO SCH (16:57)
[2019-01-17] MEDS: ALDACTONE PO SCH (18:00)
--- NOTE | 2019-01-17 20:07 | HISTORY AND PHYSICAL ---
CHIEF COMPLAINT: Fall, with left rib pain. HISTORY OF PRESENT ILLNESS: Ms. White is a 53-year-old female with a history of liver cirrhosis secondary to nonalcoholic steatohepatitis, nonbleeding esophageal varices, and prior back surgeries. She presented to the emergency room with left rib pain after falling 2 days prior. She stated that she has fallen quite a few times in the last week. With this last fall, she stated that she was getting up to walk and got tangled up in a blanket, lost her footing and fell, hitting her left side. Rib and chest x-ray revealed a mild infiltrate at the lower left lobe. PAST MEDICAL HISTORY: 1. Hypothyroid. 2. Nonalcoholic steatohepatitis. 3. Cirrhosis. 4. CVA at 20 years old. 5. Diabetes mellitus. 6. Gastroesophageal reflux disease. PAST SURGICAL HISTORY: 1. Cholecystectomy. 2. . 3. Hysterectomy. 4. Tonsillectomy. SOCIAL HISTORY: She denies any alcohol, tobacco, or illicit drug use. ALLERGIES: Adhesive tape, Imodium AD, NSAIDs, morphine, and acetaminophen. HOME MEDICATIONS: A list will be obtained by the nursing staff. Once verified, will review and restart as appropriate. REVIEW OF SYSTEMS: Discussed with patient with pertinent positives stated in the HPI. She denied any syncope or dizziness, any chest pain or palpitations, a cough, fever, chills, any night sweats, any nausea, vomiting, diarrhea, constipation, black or bloody vomitus or stools, hematuria, dysuria, frequency, or urgency. PHYSICAL EXAMINATION: GENERAL: This is a 53-year-old female who is lying in the bed in no distress. VITAL SIGNS: Blood pressure is 105/70 with heart rate of 98, respirations 18, temperature is 97.7 degrees, with room air saturations 99%. EYES: Pupils are equal, round, and react to light. EOMs are intact. Sclerae are anicteric. HEENT: Head is normocephalic, atraumatic. Mucous membranes are moist. NECK: Supple, with trachea midline. CARDIOVASCULAR: Regular rate and rhythm. S1 and S2 appreciated. She does have bilateral lower extremity edema. Calves are nontender to palpation. PULMONARY: Breath sounds are clear. They are diminished in the bases. Chest rises and falls symmetric with respiration. Chest wall is tender to palpation at the left side, mid axillary area. GASTROINTESTINAL: Abdomen is soft, nontender, and nondistended with bowel sounds in all 4 quadrants. NEUROLOGIC: She is alert and oriented x3. SKIN: Warm and dry. LABS: WBC is 4.6 with hemoglobin 10.8, hematocrit 33.9, and platelets of 189,000. Sodium 135, potassium 3.9, BUN 4, creatinine 0.5, with a glucose of 127. Total bilirubin is 1.92, with AST of 40, ALT of 17, alkaline phosphatase 202. IMAGING: Rib x-ray revealed some mild infiltrate in the left lower lobe with a stent in the region of the liver, compatible with a TIPS. There is probably a trace left pleural effusion. Right lung is clear. Abdominal ultrasound reveals nodular liver contour, suggesting cirrhosis and ascites, and a stable splenomegaly. ASSESSMENT AND PLAN: 1. Frequent falls, left rib pain. 2. Left lower lobe infiltrate. 3. Liver cirrhosis, secondary to nonalcoholic steatohepatitis. 4. Ascites. 5. History of esophageal varices, nonbleeding. 6. Diabetes mellitus. 7. Hypothyroid. PLAN: 1. The patient will be admitted to the medical-surgical floor. 2. She will be placed on telemetry for close monitoring. 3. We will identify her home medications and continue these as appropriate. 4. Repeat a CBC and CMP in the morning. 5. We will have Physical Therapy evaluate the patient. 6. As she has a left-sided infiltrate, we will order blood cultures and start antibiotics. 7. For deep venous thrombosis prophylaxis, we will use sequential compression devices, holding any anticoagulation as she has had multiple falls. 8. For gastrointestinal prophylaxis, we will use Prilosec. 9. Further treatments pending hospital course. Dictated by BATOOL Viera for Marcelino Ramachandran MD cc: BATOOL Viera MD I have seen and examined Ms White who was just recently discharged from this hospital to a rehab. She was in rehab for 2 weeks and sent home. Complains of falling down multiple times at home so she came back. She looks more edematous and ascitic. I have also reviewed her labs and imagine studies. I agree with the above HPI and the plan reflects my opinion discussed with the VALVE REPAIRER. TOM
[2019-01-17] MEDS ORDERED: NEURONTIN PO SCH (21:00)
[2019-01-17] MEDS: XIFAXAN PO SCH (21:22)
[2019-01-17] MEDS: XANAX PO SCH (21:22)
[2019-01-17] MEDS: MAXIPIME 1 GM in NS 50 ML IV SCH (21:22)
[2019-01-17] MEDS: LACTULOSE PO SCH ×2 (21:23→21:25)
[2019-01-18 07:02] LABS: BASO# 0.03 X1000 (0.0-0.2); BASO% 0.6 % (0.0-0.8); EOS# 0.67 X1000 (0.0-0.7); EOS% 13.6 % (0.0-10.0); HEMATOCRIT 32.1 % (37.0-47.0); HEMOGLOBIN 10.1 g/dL (12.0-16.0); LYMPH% 16.3 % (20.5-51.1); MCH 26.4 PG (27-31); MCHC 31.5 g/dL (33-37); MCV 83.8 FL (81-99); MONO# 0.82 X1000 (0.11-0.59); MONO% 16.7 % (1.7-9.3); MPV 9.7 FL (7.4-10.4); NEUT# 2.59 X1000 (1.4-6.5); NEUT% 52.8 % (42.2-75.2); PLT 182 X1000 (130-400); RBC 3.83 XMIL (4.2-5.4); RDW 16.4 % (11.5-14.5); WBC 4.91 X1000 (4.8-10.8)
[2019-01-18 08:04] LABS: AGAP 7; ALB/GLOB RATIO 0.6; ALKALINE PHOSPHATASE 183 U/L (32-104); BUN 4 mg/dL (8-22); CALCIUM 7.7 mg/dL (8.8-10.2); CHLORIDE 105 mmol/L (98-107); COSMO 268; CREATININE 0.4 mg/dL (0.5-0.9); ESTIMATED GFR > 60; GLUCOSE 111 mg/dL (70-104); GOT 35 U/L (10-30); GPT 15 U/L (10-36); POTASSIUM 4.1 mmol/L (3.5-5.1); SODIUM 135 mmol/L (136-145); TCO2 23 mmol/L (25-35); TOTAL PROTEIN 5.1 g/dL (6.3-8.3)
[2019-01-18 08:35] LABS: MAGNESIUM 1.9 mg/dL (1.5-2.7); PHOSPHORUS 3.1 mg/dL (2.7-4.5)
[2019-01-18 08:56] LABS: INR 1.38; PROTIME 18.1 Seconds (11.0-16.0)
[2019-01-18] MEDS ORDERED: LASIX IV SCH (09:00)
[2019-01-18] MEDS: MAXIPIME 1 GM in NS 50 ML IV SCH (09:11)
[2019-01-18] MEDS: LASIX PO SCH ×3 (09:12→11:25)
[2019-01-18] MEDS: PRILOSEC PO SCH (09:12)
[2019-01-18] MEDS: SYNTHROID PO SCH (09:12)
[2019-01-18] MEDS: CELEXA PO SCH (09:12)
[2019-01-18] MEDS: ALDACTONE PO SCH ×3 (09:12→11:24)
[2019-01-18] MEDS: NEURONTIN PO SCH ×2 (09:12→22:12)
[2019-01-18] MEDS: XIFAXAN PO SCH ×2 (09:12→22:12)
[2019-01-18] MEDS: LACTULOSE PO SCH ×2 (09:13→22:13)
[2019-01-18] MEDS ORDERED: SAMSCA PO ONE (09:42)
[2019-01-18] MEDS ORDERED: CORGARD PO SCH (09:45)
--- NOTE | 2019-01-18 10:22 | PROGRESS NOTE ---
DATE: 01/18/2019 SUBJECTIVE: This morning, Ms. White refers to be doing fairly okay. Has not had any therapy yet so she does not know if she will be falling. She complains of a lot of back pain and that at home, was on Dilaudid 2 mg every 4 hours as needed. OBJECTIVE: Current Vital Signs: Blood pressure is 109/57, pulse is 97, respirations are 16, temperature is 98.5 degrees. Patient is saturating 94% on room air. General Examination: Ms. White is a 53-year-old, morbidly obese, female. She is in bed, in no distress. HEENT: Mucosa is pink and moist. Anicteric. Acyanotic. Neck: Supple. No JVD. Chest: Air entry is bilaterally reduced. A few crackles in the posterior lung cardenas. Cardiovascular: Regular rate and rhythm. No murmurs, no rubs, no gallops. GI: Abdomen is soft, is distended. There is a fluid thrill and shifting dullness. No tenderness. Extremities: About 2+ pedal edema. 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 There is no focal neurological deficit. Laboratory Data: WBC is 4.91, hemoglobin is 10.1, platelet count of 182,000. Chemistry is also reviewed. Sodium is 135. Rest of chemistry is unremarkable. AST is 35, ALT is 15. Vitamin D is 28.9, slightly insufficient. INR is 1.38. ASSESSMENT: 1. Frequent falls at home. Patient is pending physical therapy evaluation. 2. Generalized weakness. We will check the patient's minerals including iron and vitamin D to make sure that there is not any underlying deficiencies. 3. 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 4. Diabetes mellitus, controlled. 5. Hypothyroidism. We will continue with the thyroid supplementation. 6. Chronic pain syndrome secondary to thoracolumbar spine fracture, status post fusion with rods bilaterally. We will start the patient back on her home medications. PLAN: In general, I think Ms. White seems to be fairly stable. We are still awaiting for physical therapy evaluation. We will replace the vitamin D insufficiency. We will also start her on some albumin to help with some of the fluid management. She has been started back on Lasix with spironolactone and a low-dose nadolol for the esophageal varices. The patient is also on PPI. Will order US guided paracentesis. cc: MD TOM Abernathy
[2019-01-18 10:41] LABS: IRON SATURATION 18 %; TIBC 207 ug/dL; TOTAL IRON 38 ug/dL (49-151); UNBOUND IRON 169 ug/dL (112-346)
[2019-01-18] MEDS: DILAUDID PO PRN ×3 (11:38→22:13)
[2019-01-18] MEDS: FOLIC ACID PO SCH ×2 (11:43→22:12)
[2019-01-18] MEDS: VITAMIN D PO SCH (11:43)
[2019-01-18] MEDS: MIRALAX PO SCH (11:43)
[2019-01-18] MEDS: ALBUMIN 25% IV SCH (11:45)
[2019-01-18 11:54] LABS: FERRITIN 159 ng/mL (13-150)
--- NOTE | 2019-01-18 14:19 | Diag Imaging Result Doc PS360 ---
EXAM: US ABD PARACENTESIS W S/I 01/18/2019 HISTORY: ascites TECHNIQUE: Ultrasound-guided paracentesis COMMENT: The risks and benefits of the procedure were discussed with the patient and she agreed to the procedure. Following sterile preparation of the skin anterolaterally on the right and administration of 1% lidocaine to the skin and deeper soft tissues, the paracentesis catheter was placed and subsequently 5.4 L of slightly orange turbid fluid was drained. This was sent to the laboratory in its entirety. There are no immediate complications. IMPRESSION: Successful ultrasound-guided paracentesis. Electronically signed by Oleg Horton 01/18/2019 2:17 PM
[2019-01-18 15:14] LABS: ALBUMIN BODY FLUID 0.5 g/dL; AMYLASE BODY FLUID 15 U/L; TOTAL PROT BODY FLUID 0.9 g/dL
[2019-01-18 15:15] LABS: BODY FLUID SOURCE PERITONEAL FLUID
[2019-01-18 15:16] LABS: WBC BF 125 /cumm
[2019-01-18 15:18] LABS: MONOS 67 %; POLYS 33 %
[2019-01-18] MEDS: XANAX PO SCH (22:12)
[2019-01-19 06:31] LABS: BASO# 0.02 X1000 (0.0-0.2); BASO% 0.5 % (0.0-0.8); EOS# 0.54 X1000 (0.0-0.7); HEMATOCRIT 30.2 % (37.0-47.0); HEMOGLOBIN 9.2 g/dL (12.0-16.0); LYMPH# 0.84 X1000 (1.2-3.4); LYMPH% 20.2 % (20.5-51.1); MCH 25.8 PG (27-31); MCHC 30.5 g/dL (33-37); MCV 84.6 FL (81-99); MONO# 0.75 X1000 (0.11-0.59); MPV 9.7 FL (7.4-10.4); NEUT# 2.01 X1000 (1.4-6.5); NEUT% 48.3 % (42.2-75.2); PLT 166 X1000 (130-400); RBC 3.57 XMIL (4.2-5.4); RDW 16.1 % (11.5-14.5); WBC 4.16 X1000 (4.8-10.8)
[2019-01-19 06:44] LABS: INR 1.45; PROTIME 18.7 Seconds (11.0-16.0)
[2019-01-19 07:00] LABS: AGAP 9; ALBUMIN 2.5 g/dL (3.5-5.0); ALKALINE PHOSPHATASE 156 U/L (32-104); BUN 3 mg/dL (8-22); CALCIUM 8.2 mg/dL (8.8-10.2); CHLORIDE 110 mmol/L (98-107); COSMO 285; CREATININE 0.3 mg/dL (0.5-0.9); ESTIMATED GFR > 60; GLUCOSE 119 mg/dL (70-104); GOT 33 U/L (10-30); GPT 13 U/L (10-36); POTASSIUM 3.7 mmol/L (3.5-5.1); SODIUM 144 mmol/L (136-145); TCO2 25 mmol/L (25-35); TOTAL BILIRUBIN 2.87 mg/dL (0.20-1.00)
[2019-01-19] MEDS: LACTULOSE PO SCH (08:59)
[2019-01-19] MEDS: NEURONTIN PO SCH (08:59)
[2019-01-19] MEDS: VITAMIN D PO SCH (08:59)
[2019-01-19] MEDS: LASIX PO SCH (08:59)
[2019-01-19] MEDS: CELEXA PO SCH (08:59)
[2019-01-19] MEDS: ALDACTONE PO SCH (08:59)
[2019-01-19] MEDS: SYNTHROID PO SCH (08:59)
[2019-01-19] MEDS: FOLIC ACID PO SCH (09:00)
[2019-01-19] MEDS: PRILOSEC PO SCH (09:00)
[2019-01-19] MEDS: MIRALAX PO SCH (09:01)
[2019-01-19] MEDS: XIFAXAN PO SCH (09:01)
[2019-01-19] MEDS: ALBUMIN 25% IV SCH (09:01)
[2019-01-19] MEDS: DILAUDID PO PRN ×2 (09:21→12:59)
[2019-01-19 11:25] VITALS: BP 103/35
--- NOTE | 2019-01-20 08:16 | DISCHARGE SUMMARY ---
ADMISSION DATE: 01/17/2019 DISCHARGE DATE: 01/19/2019 DISPOSITION: Home. FOLLOW-UP: 1. Follow-up will be with Dr. Burroughs. 2. The patient also advised to follow up with her GI doctor in [facility]. INVASIVE PROCEDURE DONE DURING THIS ADMISSION: Ultrasound-guided paracentesis was done; 5.4 L was removed. Fluid analysis did not show any infection, and SAAG was more than 1.1, consistent with portal hypertension physiology. ADMISSION DIAGNOSES: 1. Frequent falls. 2. Left lower lobe infiltrate. 3. Liver cirrhosis. 4. Ascites. 5. Diabetes mellitus. DIAGNOSES AT THE TIME OF DISCHARGE: 1. Frequent falls at home. 2. Generalized weakness. 3. 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 4. Diabetes mellitus, controlled. 5. Hypothyroidism. 6. Chronic pain syndromes. 7. Status post thoracolumbar spine for fusion. 8. Iron-deficiency associated with folate deficiency and vitamin D insufficiency, all replaced. 9. Previous spontaneous bacterial peritonitis. Patient is on Bactrim antimicrobial prophylaxis. DISCHARGE MEDICATIONS: 1. Citalopram 20 mg p.o. daily. 2. Levothyroxine 100 mcg p.o. daily. 3. Xanax 0.5 p.o. b.i.d. p.r.n. 4. Rifaximin 550 p.o. daily. 5. Omeprazole 40 mg daily. 6. Gabapentin 100 mg 3 times per day. 7. Bactrim 1 tablet daily. 8. Spironolactone 100 mg daily. 9. Folic acid 1 mg b.i.d. 10. Lactulose. 11. Furosemide 40 mg daily. 12. Cholecalciferol 1000 units p.o. daily. 13. Ferrous gluconate 324 p.o. daily. 14. MiraLAX. PRESENTING COMPLAINT: Falls. HISTORY OF PRESENTING COMPLAINT: Ms. White is a 53-year-old female, who is known to have cirrhosis of the liver, previous history of esophageal varices, came to the emergency department because of feeling wobbly and falling. On presentation, she was found to have some edema and ascites, and was subsequently admitted for further medical care. HOSPITAL COURSE: Ms. White was admitted to the medical floor. Paracentesis was done by IR where 5.4 L were removed. She was given albumin infusion, and she was started on her home diuretics. Physical therapy was consulted. Patient was seen by them. During the hospital course, Ms. White was also found to have iron-deficiency, vitamin D and folate; all these were addressed accordingly. This morning, she feels a whole lot better. She was also using the bedside commode. was not there at the time of this encounter, but Ms. White refers to feel a lot better that she think she can be discharged. HER CURRENT VITALS: Blood pressure is 103/35, pulse is 93, respiration is 20, temperature 98.1 degrees. All clinically stable. Still has some residual abdominal distention and about 1+ to 2+ pedal edema, for which she will continue with the diuretic therapy. All the discharge instructions have been discussed with her. She has been advised to make sure she follows up with Gastroenterology and her primary care doctor. TIME SPENT FOR DISCHARGE: 33 minutes. cc: MD Dionisio Abernathy MD
== END 2019-01-19 16:02 | disposition home health service (06) | DRG 641 ==
LOC: ED 09:45 → 4N 09:46
PROVIDERS: ATTEND Internal Medicine
CPT/HCPCS: 49083; 71101; 76700; 80053; 82042; 82150; 82306; 82607; 82728; 82746; 83540; 83550; 83735; 83880; 84100; 84157; 84443; 85025; 85610; 87070; 87075; 89051; 97110; 97163; 97530; 99285; A9270; J0692; P9047